=== PATIENT | male | born 1965 | race Caucasian/White ===

== ENCOUNTER 2018-01-03 11:51 | Emergency (ER) | payer OTHER ==
[~2018-01-03] VITALS: Ht 170.2 cm; Wt 134.9 kg
[~2018-01-03 11:51] MED LIST: ASPI81TA28 PO; CITA40TA12 PO; LPT/40 PO; LSN/10125 PO; MELO7.5T5 PO; MISCTAB78 PO; ZOLP5TAB PO
[2018-01-03 12:01] VITALS: TEMP 36.8; Ht 170.2 cm; Wt 134.9 kg
[2018-01-03] MEDS ORDERED: SODIUM CHLORIDE 0.9% 500ML 500 ML IV STA (12:23)
[2018-01-03] MEDS ORDERED: KETOROLAC TROMETHAMINE 30 MG/ML VIAL IV STA (12:23)
[2018-01-03] MEDS ORDERED: BENZONATATE 100MG CAP PO ONE (12:30)
[2018-01-03 12:49] LABS: BASO % 0.7 %; BASO ABS # 0.04 K/uL (0-0.2); EOS % 4.9 %; EOS ABS # 0.29 K/uL (0-0.5); HEMOGLOBIN 15.5 g/dL (14.0-18.0); IG# 0.01 K/uL (0.00-0.02); LYMPH % 27.6 %; LYMPH ABS # 1.65 K/uL (1.2-3.4); MEAN CELL VOLUME 85.8 fL (80-100); MEAN CORPUSCULAR HEMOGLOBIN 30.2 pg (25-34); MEAN CORPUSCULAR HGB CONC 35.2 g/dl (32-36); MEAN PLATELET VOLUME 10.2 fL (7.4-10.4); MONO % 10.7 %; MONO ABS # 0.64 K/uL (0.11-0.59); NEUT % 55.9 %; NEUT ABS # 3.34 K/uL (1.4-6.5); PLATELET COUNT 170 K/uL (130-400); RED CELL DISTRIBUTION WIDTH CV 13.6 % (11.5-14.5); RED CELL DISTRIBUTION WIDTH SD 42.6 fL (36.4-46.3); WHITE BLOOD COUNT 5.97 K/uL (4.8-10.8)
--- NOTE | 2018-01-03 12:54 | DIAGNOSTIC IMAGING REPORT ---
CHEST ONE VIEW PORTABLE HISTORY: 52 years-old Male cough acute cough COMPARISON: Portable AP view of the chest TECHNIQUE: Chest radiograph 09/19/2012 FINDINGS: The cardiac silhouette is mildly enlarged. There is no pneumothorax, pleural effusion, focal airspace consolidation or overt pulmonary edema. The bones of the chest appear grossly intact. Degenerative changes are seen within the shoulders and spine. IMPRESSION: Mild cardiomegaly without acute process. The above report was generated using voice recognition software. It may contain grammatical, syntax or spelling errors. Electronically signed by: Juan Howell M.D. 01/03/2018 12:52 PM Dictated Date/Time: 01/03/2018 12:50 PM
[2018-01-03 13:07] LABS: ALBUMIN 3.9 gm/dl (3.4-5.0); ALT/SGPT 39 U/L (12-78); AST/SGOT 30 U/L (15-37); BLOOD UREA NITROGEN 10 mg/dl (7-18); CALCIUM 8.7 mg/dl (8.5-10.1); CARBON DIOXIDE 29 mmol/L (21-32); CREATININE 0.98 mg/dl (0.60-1.40); GLUCOSE 87 mg/dl (70-99); POTASSIUM 3.8 mmol/L (3.5-5.1); SODIUM 136 mmol/L (136-145)
[2018-01-03 13:12] LABS: ALKALINE PHOSPHATASE 74 U/L (45-117); TOTAL PROTEIN 7.5 gm/dl (6.4-8.2)
[2018-01-03 13:25] LABS: INFLUENZA B ANTIGEN Neg for Influ B (NEG)
[2018-01-03] MEDS ORDERED: DOXY100C PO (15:11)
[2018-01-03] MEDS ORDERED: DOXYCYCLINE HYCLATE 100 MG CAP PO ONE (15:15)
[2018-01-03 15:27] VITALS: BP 131/80; PULSE 68; O2SAT 96
--- NOTE | 2018-01-03 18:55 | EMERGENCY ROOM VISIT NOTE ---
History Report prepared by Farrah: Paige Sanders Under the Supervision of: Dr. Merrick Simpson D.O. First contact with patient: 12:11 Chief Complaint: COUGH Stated Complaint: CHEST PAIN/COUGH History of Present Illness The patient is a 52 year old male who presents to the Emergency Room with complaints of an intermittent cough for the past 3 days. The patient has been experiencing a productive cough with off-white sputum. He reports central chest pain that occurs with coughing and is worsened with coughing. He describes his pain as "sharp" and "burning." He has some mild pain that lingers after coughing that he rates as a 1/10 in severity. The patient also reports rhinorrhea, sore throat, and right ear "popping." He notes that his children recently had strep throat. The patient saw his PCP today at the [place] [facility] about 45 minutes COLORIST for his symptoms. He had an abnormal ECG and was sent to the ED for further evaluation. He denies any significant cardiac history. Pt denies headache, change in vision, fevers, shortness of breath, nausea, vomiting, diarrhea, abdominal pain, pain with urination, and melena. Patient denies swelling of calves, recent trips, history of immobilization or recent surgery, prior history of DVT, hemoptysis, history of malignancy, or history of smoking. Source of History: patient Onset: 3 days ago Position: chest Symptom Intensity: 1/10 Quality: burning, sharp Timing: intermittent Modifying Factors (Worsening): other (coughing) Associated Symptoms: + sorethroat, + chest pain, No fevers, No headache, No SOB, No nausea, No vomiting, No abdominal pain, No melena, No diarrhea, No urinary symptoms Note: Pt notes rhinorrhea and right ear "popping." Review of Systems See HPI for pertinent positives & negatives. A total of 10 systems reviewed and were otherwise negative. Past Medical & Surgical Medical Problems: (1) Depressive disorder (2) Disc displacement, lumbar (3) Hypertension (4) Sleep apnea Family History No pertinent history stated. Social History Smoking Status: Never Smoker Housing Status: lives with family Current/Historical Medications Scheduled Aspirin (Aspirin Ec), 81 MG PO QAM Atorvastatin (Lipitor), 20 MG PO HS Citalopram Hydrobromide (Celexa), 40 MG PO QAM Doxycycline Hyclate (Vibramycin), 100 MG PO BID Hctz/Lisinopril (Lisinopril/Hctz 10/12.5 Mg), 1 TAB PO QAM Meloxicam (Mobic), 7.5 MG PO QAM Misc Natural Products (Osteo Bi-Flex Advanced Do), 2 TAB PO QAM Zolpidem Tartrate (Ambien), 5 MG PO HS Allergies Coded Allergies: Trazodone (Verified Allergy, Intermediate, RAPID HEART RATE, 01/03/18) Physical Exam Vital Signs Date Time Temp Pulse Resp B/P (MAP) Pulse Ox O2 Delivery O2 Flow Rate FiO2 01/03/18 15:27 68 15 131/80 96 Room Air 01/03/18 13:36 74 20 126/77 96 01/03/18 12:45 97 Room Air 01/03/18 12:10 67 01/03/18 12:01 36.8 66 16 162/88 97 Room Air Physical Exam GENERAL: Sitting up in bed, alert, dry cough, talking in full sentences, well appearing, well nourished, no distress, non-toxic EYE EXAM: normal conjunctiva. OROPHARYNX: no exudate, no erythema, lips, buccal mucosa, and tongue normal and mucous membranes are moist NECK: supple, no nuchal rigidity, no adenopathy, non-tender, no JVD LUNGS: Clear to auscultation. Normal chest wall mechanics HEART: no murmurs, S1 normal and S2 normal ABDOMEN: abdomen soft, non-tender, normo-active bowel sounds, no masses, no rebound or guarding. BACK: Back is symmetrical on inspection and there is no deformity, no midline tenderness, no CVA tenderness. SKIN: no rashes and no bruising UPPER EXTREMITIES: upper extremities are grossly normal. Radial pulses equal bilaterally. LOWER EXTREMITIES: No pitting edema, calves equal bilaterally. NEURO EXAM: Normal sensorium, cranial nerves II-XII grossly intact, normal speech, no gross weakness of arms, no gross weakness of legs. Medical Decision & Procedures ER Provider Diagnostic Interpretation: Radiology results as stated below per my review and the radiologist's interpretation: CHEST ONE VIEW PORTABLE HISTORY: 52 years-old Male cough acute cough COMPARISON: Portable AP view of the chest TECHNIQUE: Chest radiograph 09/19/2012 FINDINGS: The cardiac silhouette is mildly enlarged. There is no pneumothorax, pleural effusion, focal airspace consolidation or overt pulmonary edema. The bones of the chest appear grossly intact. Degenerative changes are seen within the shoulders and spine. IMPRESSION: Mild cardiomegaly without acute process. The above report was generated using voice recognition software. It may contain grammatical, syntax or spelling errors. Electronically signed by: Juan Howell M.D. 01/03/2018 12:52 PM Dictated Date/Time: 01/03/2018 12:50 PM Laboratory Results 01/03/18 12:37 Red Blood Count 5.13, Mean Corpuscular Volume 85.8, Mean Corpuscular Hemoglobin 30.2, Mean Corpuscular Hemoglobin Concent 35.2, Mean Platelet Volume 10.2, Neutrophils (%) (Auto) 55.9, Lymphocytes (%) (Auto) 27.6, Monocytes (%) (Auto) 10.7, Eosinophils (%) (Auto) 4.9, Basophils (%) (Auto) 0.7, Neutrophils # (Auto ) 3.34, Lymphocytes # (Auto) 1.65, Monocytes # (Auto) 0.64, Eosinophils # (Auto ) 0.29, Basophils # (Auto) 0.04 01/03/18 12:37 Test 01/03/18 12:37 01/03/18 12:45 White Blood Count 5.97 K/uL (4.8-10.8) Red Blood Count 5.13 M/uL (4.7-6.1) Hemoglobin 15.5 g/dL (14.0-18.0) Hematocrit 44.0 % (42-52) Mean Corpuscular Volume 85.8 fL (80-100) Mean Corpuscular Hemoglobin 30.2 pg (25-34) Mean Corpuscular Hemoglobin Concent 35.2 g/dl (32-36) Platelet Count 170 K/uL (130-400) Mean Platelet Volume 10.2 fL (7.4-10.4) Neutrophils (%) (Auto) 55.9 % Lymphocytes (%) (Auto) 27.6 % Monocytes (%) (Auto) 10.7 % Eosinophils (%) (Auto) 4.9 % Basophils (%) (Auto) 0.7 % Neutrophils # (Auto) 3.34 K/uL (1.4-6.5) Lymphocytes # (Auto) 1.65 K/uL (1.2-3.4) Monocytes # (Auto) 0.64 K/uL (0.11-0.59) Eosinophils # (Auto) 0.29 K/uL (0-0.5) Basophils # (Auto) 0.04 K/uL (0-0.2) RDW Standard Deviation 42.6 fL (36.4-46.3) RDW Coefficient of Variation 13.6 % (11.5-14.5) Immature Granulocyte % (Auto) 0.2 % Immature Granulocyte # (Auto) 0.01 K/uL (0.00-0.02) D-Dimer < 190 ug/L FEU (0-500) Anion Gap 6.0 mmol/L (3-11) Est Creatinine Clear Calc Drug Dose 119.4 ml/min Estimated GFR () 103.8 Estimated GFR (Non- 89.5 BUN/Creatinine Ratio 10.1 (10-20) Calcium Level 8.7 mg/dl (8.5-10.1) Total Bilirubin 0.5 mg/dl (0.2-1) Direct Bilirubin 0.1 mg/dl (0-0.2) Aspartate Amino Transf (AST/SGOT) 30 U/L (15-37) Alanine Aminotransferase (ALT/SGPT) 39 U/L (12-78) Alkaline Phosphatase 74 U/L (45-117) Troponin I < 0.015 ng/ml (0-0.045) Total Protein 7.5 gm/dl (6.4-8.2) Albumin 3.9 gm/dl (3.4-5.0) Influenza Type A Antigen Neg for Influ A (NEG) Influenza Type B Antigen Neg for Influ B (NEG) Laboratory results per my review. Medications Administered Medications (Trade) Dose Ordered Sig/Francisco Route Start Time Stop Time Status Last Admin Dose Admin Sodium Chloride 500 ml @ 999 mls/hr Q31M STAT IV 01/03/18 12:23 01/03/18 12:53 DC 01/03/18 12:48 999 MLS/HR Ketorolac Tromethamine (Toradol Inj) 30 mg NOW STAT IV 01/03/18 12:23 01/03/18 12:25 DC 01/03/18 12:45 30 MG Benzonatate (Tessalon Perles Cap) 100 mg NOW ONCE PO 01/03/18 12:30 01/03/18 12:31 DC 01/03/18 12:44 100 MG Doxycycline Hyclate (Vibramycin Cap) 100 mg ONE ONCE PO 01/03/18 15:15 01/03/18 15:16 DC 01/03/18 15:29 100 MG ECG Per My Interpretation Indication: chest pain Rate (beats per minute): 67 Rhythm: normal sinus Findings: left axis deviation, no ectopy ED Course ED COURSE: Vital signs were reviewed and showed hypertensive. The patients medical record was reviewed The above diagnostic studies were performed and reviewed. ED treatments and interventions as stated above. 1211: The patient was evaluated in room B5. A complete history and physical examination was performed. 1223: Toradol 30 mg IV, NSS 500 ml @ 999 mls/hr IV 1230: Benzonatate 100 mg PO 1424: I updated the patient and answered all of his questions at this time. 1513: Upon reevaluation, the patient is feeling better and resting comfortably. I discussed my findings with the patient and he understands and agrees with the treatment plan. Based on the patients age, coexisting illnesses, exam and lab findings the decision to treat as an outpatient was made. The patient remained stable while under my care. The patient appeared well at the time of discharge. 1515: Vibramycin 100 mg PO Medical Decision Differential diagnoses includes but is not limited to pneumonia, bronchitis, COPD/Asthma exacerbation, pneumothorax, pulmonary embolism, congestive heart failure, acute coronary syndrome. Patient is a 52-year-old male that presents to ER for persistent cough associated with chest pain. Chest pain started initially with the coughing. He also has a runny nose and sore throat. He has been having popping in his right ear. He feels as though his right ear is extremely congested. He is coughing up a clear mucousy productive cough. Chest pain is reproducible on palpation and is present with coughing. CBC along with BMP, LFTs, bilirubin and troponin was negative. D-dimer was negative. Influence was negative. EKG and chest x-ray were unremarkable. Based on symptoms I do believe that this is most consistent with a bronchitis. He was given doxycycline. He is discharged follow-up with PCP as an outpatient. His chest pain was completely reproducible over the left humerus. I do favor this musculoskeletal. Discussed with Pt concerning signs and symptoms to watch out for. Pt was instructed to follow up with their PCP and discussed with the patient their option to return to the ED at anytime for persistent or worsening symptoms. The appropriate anticipatory guidance and out-patient management, including indications for return to the emergency department, were explained at length to the patient and understood. Medication Reconcilliation Current Medication List: was personally reviewed by me Blood Pressure Screening Patient's blood pressure: Elevated blood pressure Blood pressure disposition: Elevated BP felt to be situational Impression Primary Impression: Bronchitis Scribe Attestation The scribe's documentation has been prepared under my direction and personally reviewed by me in its entirety. I confirm that the note above accurately reflects all work, treatment, procedures, and medical decision making performed by me. Departure Information Dispostion Home / Self-Care Prescriptions Doxycycline Hyclate (VIBRAMYCIN) 100 Mg Cap 100 MG PO BID for 10 Days, CAP Prov: Merrick Simpson, DO 01/03/18 Referrals Hailey Nino C.R.NTaylorPTaylor (PCP) Forms HOME CARE DOCUMENTATION FORM, IMPORTANT VISIT INFORMATION Patient Instructions Bronchitis Acute, My [facility] Additional Instructions Please follow up with your primary care doctor with in the next 24 hours. Any worsening of your symptoms, please return to the ED immediately. This includes any fevers greater than 100.4, worsening pain, chest pain, shortness breath, persistent nausea, vomiting, unable to eat or drink, or any other concerning signs or symptoms from your standpoint. Please take antibiotics as prescribed.
== END 2018-01-03 15:32 | disposition home or self-care (01) ==
LOC: EDBD 11:51 → C.EDB 11:56
DX: J40 Bronchitis, not specified as acute or chronic (principal); R94.31 Abnormal electrocardiogram [ECG] [EKG]; F32.9 Major depressive disorder, single episode, unspecified; M51.26 Other intervertebral disc displacement, lumbar region; Z88.8 Allergy status to other drugs, medicaments and biological substances

== ENCOUNTER 2020-07-07 11:10 | Inpatient (IN) ==
--- NOTE | 2020-06-06 14:53 | PAT Medication Instructions ---
Medication Instructions Date of Service June 06, 2020 Home Medications atorvastatin 40 mg PO QDL celecoxib [Celebrex] 200 mg PO QDL cyclobenzaprine 10 mg PO BID PRN gabapentin 300 mg PO TID lisinopril-hydrochlorothiazide 1 tab PO QDL paroxetine HCl 60 mg PO QDL zolpidem 10 mg PO HS PRN ASK your surgeon for instructions celecoxib [Celebrex] 200 mg PO QDL DO NOT take the morning of surgery cyclobenzaprine 10 mg PO BID PRN lisinopril-hydrochlorothiazide 1 tab PO QDL Take morning of surgery With a small sip of water, OTHERWISE NOTHING TO EAT OR DRINK AFTER MIDNIGHT: atorvastatin 40 mg PO QDL gabapentin 300 mg PO TID paroxetine HCl 60 mg PO QDL Take evening before surgery cyclobenzaprine 10 mg PO BID PRN (if needed) gabapentin 300 mg PO TID zolpidem 10 mg PO HS PRN (if needed) Other Notes If you have any questions please call us at [phone] or [phone] or [phone] or [phone]
--- NOTE | 2020-06-10 10:46 | Anesthesiology Consultation ---
Date of Service June 10, 2020 Assessment & Plan (1) Encounter for pre-operative examination: Chart Review Chart Review: Pending: Refer to Additional Notes / Consult section (response from PCP re: EKG and preop Covid testing ) and Patient seen in Pre Admission Testing Will send EKG to PCP for review to see if further cardiac testing or evaluation needed for septal infarct. Per PAT appt 06/10/20, no recent travel. No known Covid positive contacts or Covid related symptoms. Educated patient to follow up with surgeon's office regarding Covid testing. Educated on importance of self quarantining, social distancing and wearing mask in public both for the patient and household contacts. Teaching & Discussion Pre-Anesthesia Teaching/Discussion Notes: Instructed NPO after midnight before surgery,except medications with 15 cc of water. Medication instructions provided according to the PAT guidelines. History Surgery Operation Date: 07/07/20 10:35 Proposed Procedures p L3-S1 Decompression and Fusion, Spinal Cord Monitoring - Gonsalo Grossman DO Height/Weight Height: 5 ft 7 in Weight: 112.1 kg Allergies Allergy/AdvReac Type Severity Reaction Status Date / Time trazodone AdvReac Intermediate RAPID Verified 06/03/20 10:10 HEART RATE capsaicin AdvReac Insomnia Verified 06/03/20 10:10 Medications Home Medications Medication Instructions Recorded Confirmed Last Taken atorvastatin 40 mg PO QDL 06/03/20 06/03/20 Unknown celecoxib [Celebrex] 200 mg PO QDL 06/03/20 06/03/20 Unknown cyclobenzaprine 10 mg PO BID PRN 06/03/20 06/03/20 Unknown gabapentin 300 mg PO TID 06/03/20 06/03/20 Unknown lisinopril-hydrochlorothiazide 1 tab PO QDL 06/03/20 06/03/20 Unknown paroxetine HCl 60 mg PO QDL 06/03/20 06/03/20 Unknown zolpidem 10 mg PO HS PRN 06/03/20 06/03/20 Unknown Past Medical History Medical History Anxiety Depression Hearing deficit BL SUAZO Hyperlipidemia Hypertension IBS (irritable bowel syndrome) Mild - no recent flares PTSD (post-traumatic stress disorder) Sleep apnea CPAP Spinal stenosis Exercise / Class Metabolic Activity II 4-5 Yardwork/Stairs/Walk up hill (one flight of stairs - no chest pain or SOB ) Past Family History Family History Father Diabetes Other No family history of adverse response to anesthesia Past Surgical History Surgical History History of carpal tunnel release of both wrists History of colonoscopy History of eye surgery History of lumbar surgery Past Anesthesia History No Hx of Anesthesia Complications and No Family Hx of Anesthesia Complications History of PONV No Hx of PONV and No Hx of Motion Sickness Social History Smoking Status: Former smoker Do You Dip or Chew Tobacco: No Smoking End Date: 25 years ago Hx Alcohol Use: Yes alcohol intake frequency: holidays/special occasions only Hx Substance Use: No substance use type: does not use Review of Systems Patient denies chest pain, shortness of breath, dyspnea on exertion, reflux, cough, wheezing, palpitations. No hx of seizures, stroke, NV. No hx of blood clots or blood transfusions Physical Exam Vital Signs VITALS BP 121/81 P 71 TEMP 98.0 SP02 99% RESP 16 Constitutional no acute distress ENMT Mouth: no TMJ clicking Thyromental Distance: > or= 3.5 Finger Breadths (4.0) Mallampati Class: III Bridges top and bottom side of mouth Neck + short neck, + thick neck and + limited neck extension (moderate ) Respiratory normal respiratory effort; no respiratory distress Auscultation: lungs clear to auscultation bilaterally; no wheezes Cardiovascular Rate/Rhythm: regular rate and regular rhythm Heart Sounds: no murmur Vessels: no carotid bruit Musculoskeletal Spine: + pain with cervical ROM (secondary to pinched nerve in neck x one week (pain improving)) Neurologic moves all extremities Psychiatric Orientation: alert Testing Laboratory Results 06/10/20 11:05 06/10/20 11:05 PT 11.3 Seconds (9.0-12.0) 06/10/20 11:05 INR 1.1 (0.9-1.1) 06/10/20 11:05 APTT 29.1 Seconds (21.0-31.0) 06/10/20 11:05 Urine Color Yellow 06/10/20 Unknown Urine Appearance Clear (Clear) 06/10/20 Unknown Urine pH 5.0 (4.5-7.5) 06/10/20 Unknown Ur Specific [place] 1.017 (1.000-1.030) 06/10/20 Unknown Urine Protein Negative (Negative) 06/10/20 Unknown Urine Glucose (UA) Negative (Negative) 06/10/20 Unknown Urine Ketones Negative (Negative) 06/10/20 Unknown Urine Nitrite Negative (Negative) 06/10/20 Unknown Ur Leukocyte Esterase Negative (Negative) 06/10/20 Unknown Blood Type O Positive 06/10/20 11:05 Antibody Screen NEGATIVE 06/10/20 11:05 Electrocardiogram Date: 06/10/20 Findings: + NSR @ (72) Cannot rule out old septal infarct. Compared to EKG from January 03, 2018- criteria for septal infarct now present. Chest X-Ray Date: 06/10/20 Findings: + NAD
[2020-06-10 11:27] LABS: Basophils # (auto) 0.04 K/uL (0-0.2); Basophils % (auto) 0.6 %; Eosinophils # (auto) 0.09 K/uL (0-0.5); Eosinophils % (auto) 1.4 %; Immature Granulocytes # (auto) 0.02 K/uL (0.00-0.02); Immature Granulocytes % (auto) 0.3 %; Lymphocytes # (auto) 1.88 K/uL (1.2-3.4); Lymphocytes % (auto) 29.7 %; Mean Corpuscular Hemoglobin 29.9 pg (25-34); Mean Corpuscular Volume 87.9 fL (80-100); Mean Platelet Volume 11.6 fL (7.4-10.4); Monocytes # (auto) 0.44 K/uL (0.11-0.59); Neutrophils # (auto) 3.86 K/uL (1.4-6.5); Platelet Count 170 K/uL (130-400); RDW Coefficient of Variation 13.3 % (11.5-14.5); RDW Standard Deviation 42.6 fL (36.4-46.3); Red Blood Count 5.35 M/uL (4.7-6.1); White Blood Count 6.33 K/uL (4.8-10.8)
[2020-06-10 11:34] LABS: Appearance Urine Clear (Clear); Bilirubin Urine Negative (Negative); Blood Urine Negative (Negative); Color Urine Yellow; Glucose Urine UA Negative (Negative); Ketones Urine Negative (Negative); Leukocyte Esterase Urine Negative (Negative); Nitrite Urine Negative (Negative); Protein Urine Negative (Negative); Specific Gravity Urine 1.017 (1.000-1.030); Urobilinogen Urine Negative (Negative)
--- NOTE | 2020-06-10 11:39 | XRay Report ---
XR chest Pre-admission PA/Lat CLINICAL HISTORY: Preoperative chest COMPARISON STUDY: 01/03/2018 FINDINGS: The cardiac and mediastinal contours are normal. There is no evidence of focal pulmonary co nsolidation. There is no evidence of failure. No pleural effusions are visualized.[Minor erosive gamboa ge/tapering of the distal clavicles cannot be excluded although they're not well-visualized the curre nt study IMPRESSION: No active disease in the chest. ACT 112: Negative or not required by law. Electronically signed by: Francisco Lopez M.D. 06/10/2020 11:38 AM
[2020-06-10 11:57] LABS: INR 1.1 (0.9-1.1); Partial Thromboplastin Time 29.1 Seconds (21.0-31.0); Prothrombin Time 11.3 Seconds (9.0-12.0)
[2020-06-10 12:16] LABS: BUN Creatinine Ratio 15.7 (10-20); Calcium 8.8 mg/dl (8.5-10.1); Est GFR (Non-African American) 75.9; Potassium 4.2 mmol/L (3.5-5.1)
--- NOTE | 2020-06-10 12:19 | Electrocardiogram Report ---
Test Reason : Blood Pressure : / mmHG Vent. Rate : 072 BPM Atrial Rate : 072 BPM P-R Int : 164 ms QRS Dur : 094 ms QT Int : 396 ms P-R-T Axes : 061 -24 004 degrees QTc Int : 433 ms Normal sinus rhythm Cannot rule out Old Septal infarct Abnormal ECG When compared with ECG of 03-JAN-2018 11:57, Criteria for Septal infarct is now Present Confirmed by Telly Denney ([id number]) on 06/10/2020 12:19:20 PM Referred By: Gonsalo Grossman Confirmed By:Telly Denney
[~2020-07-07 11:10] MED LIST changes: +ACETAMINOPHEN 500 MG TAB PO SCH; -ASPI81TA28 PO; +CEFAZOLIN 2000MG 2,000 MG/15 ML SYR IV SCH; -CITA40TA12 PO; +CeleBREX 200 MG CAP PO SCH; +GABAPENTIN 900 MG DOSE PO SCH; +LACTATED RINGER'S 1,000 ML IV SCH; -LPT/40 PO; -LSN/10125 PO; -MELO7.5T5 PO; -MISCTAB78 PO; -ZOLP5TAB PO
--- NOTE | 2020-07-07 11:52 | History & Physical Bridge Note ---
Date of Service July 07, 2020 History & Physical Bridge Note I have examined the patient, reviewed the History & Physical and in the interval since the performance of the History & Physical I have noted the following changes of clinical significance: no changes noted
[2020-07-07] MEDS ORDERED: BACITRACIN INJ 50,000 UNIT VIAL ONE (11:53)
--- NOTE | 2020-07-07 11:53 | History & Physical Report ---
Date of Service July 07, 2020 Assessment & Plan (1) Neurogenic claudication due to lumbar spinal stenosis: Admission and Anticipated Discharge Date Admission Date: L3-S1 decompression fusion History of Present Illness Chief Complaint: Back and leg pain Primary Care Provider: Ansley Padgett PA-C This is a 55-year-old male who presents with chronic persistent back pain and leg pain after failing course of nonoperative care is here for surgical invention. Allergies Allergy/AdvReac Type Severity Reaction Status Date / Time trazodone AdvReac Intermediate RAPID Verified 07/07/20 11:44 HEART RATE capsaicin AdvReac Insomnia Verified 07/07/20 11:44 Home Medications Home Medications Medication Instructions Recorded Confirmed Type atorvastatin 40 mg PO QDL 06/03/20 07/07/20 History celecoxib [Celebrex] 200 mg PO QDL 06/03/20 07/07/20 History cyclobenzaprine 10 mg PO BID PRN 06/03/20 07/07/20 History gabapentin 300 mg PO TID 06/03/20 07/07/20 History lisinopril-hydrochlorothiazide 1 tab PO QDL 06/03/20 07/07/20 History paroxetine HCl 60 mg PO QDL 06/03/20 07/07/20 History zolpidem 10 mg PO HS PRN 06/03/20 07/07/20 History Past Med/Surg History Medical History Anxiety Depression Hearing deficit BL SUAZO Hyperlipidemia Hypertension IBS (irritable bowel syndrome) Mild - no recent flares PTSD (post-traumatic stress disorder) Sleep apnea CPAP Spinal stenosis Surgical History History of carpal tunnel release of both wrists History of colonoscopy History of eye surgery History of lumbar surgery Family History Father Diabetes Other No family history of adverse response to anesthesia Social History Smoking Status: Former smoker Smoking End Date: 25 years ago; Second Hand Exposure: No; Do You Dip or Chew Tobacco: No; Tobacco Cessation Education Requested by Patient: No Hx Alcohol Use: Yes Hx Substance Use: No Preferred Language: Brazilian Communication Ability: Effective Cafeteria Monitor Required: No Beliefs That Will Affect Care: Worship Worship Beliefs: Congregational Current Living Situation: Spouse Feels Safe at Home: Yes Safety Concerns: Feels Safe At This Time Assistive Devices: CPAP, Glasses and Hearing Aid - Bilateral Physical Exam Physical Exam: Patient is alert and oriented neurologically intact. Heart regular in rhythm. Lungs clear to auscultation.
[2020-07-07] MEDS ORDERED: BUPIVACAINE/EPINEPHRINE 0.25% 1:200,000 30 ML VIAL ONE (11:54)
[2020-07-07] MEDS ORDERED: MIDAZOLAM HCL 1 MG/ML 2ML VIAL ONE (11:59)
[2020-07-07] MEDS ORDERED: fentaNYL citrate 100 MCG/2 ML VIAL ONE ×3 (11:59→15:19)
[2020-07-07] MEDS ORDERED: PROPOFOL IV EMULSION 10 MG/ML 20 ML VIAL IV ONE (12:00)
[2020-07-07] MEDS ORDERED: ROCURONIUM BROMIDE 10 MG/ML 5 ML VIAL IV ONE ×10 (12:00→14:27)
[2020-07-07] MEDS ORDERED: LIDOCAINE HCL 2% 2 ML VIAL/AMP(20MG/ML) INFIL ONE (12:00)
[2020-07-07] MEDS ORDERED: DEXAMETHASONE SOD INJ 4 MG/ML VIAL ONE (12:01)
[2020-07-07] MEDS ORDERED: ONDANSETRON INJ 2 MG/ML 2 ML VIAL ONE (12:01)
[2020-07-07] MEDS ORDERED: FLOSEAL HEMOSTATIC MATRIX 10ML TOP ONE (12:54)
[2020-07-07] MEDS ORDERED: ePHEDrine sulfate 50 MG/ML SYR ONE (13:01)
[2020-07-07] MEDS ORDERED: PHENYLEPHRINE 100MCG/ML 5ML SYR ONE (13:05)
[2020-07-07] MEDS ORDERED: HYDROmorphone INJ 2 MG/ML SYR/VIAL IV PRN (13:15)
[2020-07-07] MEDS ORDERED: fentaNYL citrate 100 MCG/2 ML VIAL IV PRN (13:15)
[2020-07-07] MEDS ORDERED: ATROPINE SULFATE 0.1 MG/ML 10ML SYR IV PRN (13:15)
[2020-07-07] MEDS ORDERED: ONDANSETRON INJ 2 MG/ML 2 ML VIAL IV PRN ×2 (13:15→16:50)
[2020-07-07] MEDS ORDERED: ePHEDrine sulfate 50 MG/ML AMP IV PRN (13:15)
[2020-07-07] MEDS ORDERED: GLYCOPYRROLATE 0.2 MG/ML VIAL ONE (14:02)
[2020-07-07] MEDS ORDERED: NEOSTIGMINE METHYLSULFATE 1 MG/ML 10ML VIAL ONE (14:02)
--- NOTE | 2020-07-07 15:16 | Operative Report ---
Post Operative Report Pre & Post Diagnosis Operation Date: 07/07/20 12:55 Pre-Op Diagnosis: Lumbar spinal stenosis with neurogenic claudication Obesity Post-Op Diagnosis: Same I identified the patient and participated in the time-out.: Yes Procedure Operation Date: 07/07/20 12:55 Actual Procedures #1 revision decompression with bilateral medial facetectomies and foraminotomies L2-3, L3-4, L4-5 and L5-S1. #2 posterior spinal fusion L3-4, L4-5 and L5-S1. #3 placement posterior segmental instrumentation L3-S1. #4 interbody fusion L3- 4, L4-5 and L5-S1. #5 placed a peek cage 11 x 26 mm at L3-4 and 13 x 26 mm at L4-5 and L5-S1. #6 placement locally harvested morselized autograft in the posterior lateral gutters. #7 placement infuse collagen sponge, master graft and posterior gutters and ostial amp interbody space. Surgeon Gonsalo Grossman, DO Research And Development Specialist Claire Chapman Estimated Blood Loss 900 Findings See Below Patient is 5 foot 7 inches tall weighing over 112 kg with a BMI in excess of 38. This combined with an EBL in excess of 900 cc created significant technical difficulty. He required her deepest retractors and longest instruments in order to perform his procedure. This at least 50% increase to the operative time. Specimens None Indications This is a 55-year-old male who presents with above-mentioned diagnosis after failing stents course of nonoperative care is here for the above-mentioned procedure. Description of Procedure Patient was met with identified informed consent obtained. Patient was then taken to the operative suite underwent an patient placed in a prone position the Russell table on top Mikie frame. All bony prominences well-padded eyes inspected to ensure no external pressure placed upon them. This point the lumbar spine was prepped and draped in normal sterile fashion. Sharp dissection with the assistance of Bovie cautery was performed down to and exposing the remaining lamina and transverse processes of L3-L4-L5 and the sacral ala bilaterally. From a caudal cephalad fashion revision complete laminectomy of L5 L4 L3 and proximal laminectomy L2 was performed including bilateral medial facetectomies and foraminotomies addressing severe spinal stenosis. Pedicle screws were then placed in L3-L4-L5 and S1 levels bilaterally with assistance of fluoroscopy and proper sized estuardo placed. By way of a trans-foraminal approach on the right complete discectomy of L5-S1 was performed endplates curetted to subcortical bleeding bone and a 13 x 26 mm peek cage filled with osteo-bone graft tapped in position. Then proceeded L4-[address] of a trans- foramen approach on the left complete discectomy performed endplates coated to subcortically bone and a 13 x 26 mm peek cage filled osteo-bone graft tapped in position. Lastly I proceeded to L3-[address] to transfer approach on right complete discectomy performed endplates curetted to subcortical bleeding bone and a 11 x 26 mm peek cage with osteo-bone graft tapped in position. The rods were then locked in final position bilaterally. The transverse processes of L3-L4-L5 and the sacral ala burred to subcortical bleeding bone. Infuse collagen sponge master graft local autograft was placed in posterior gutters. 15 round ERNESTO drain inserted. Incision was then closed with 1 Vicryl the fascia 2-0 Vicryl subcutaneously and 4 Monocryl for final skin closure. Steri-Strip sterile dressings placed. Patient waken taken PACU stable condition. Please note spinal cord monitoring was utilized at the procedure no changes noted. Lastly Claire Chapman was present at the entire procedure involved the patient positioning complex portions of the surgery and final skin closure. I attest to the content of the Intraoperative Record and any orders documented therein. Any exceptions are noted below.
--- NOTE | 2020-07-07 15:22 | Fluoroscopy Report ---
FL lumbar spine 2-3V CLINICAL HISTORY: L3-S1 DECOMPRESSION AND FUSION COMPARISON STUDY: 2011 FLUOROSCOPY TIME: 29 seconds. NUMBER OF FLUOROSCOPIC IMAGES: 3 FINDINGS: 2 intraoperative fluoroscopic spot images reveal postsurgical changes of an L3-S1 spinal de compression and fusion with posterior pedicle screws and adjoining spinal rods IMPRESSION: Intraoperative fluoroscopic spot images revealing postsurgical changes of an L3-S1 spina l decompression and fusion. ACT 112: Negative or not required by law. Electronically signed by: Francisco Lopez M.D. 07/07/2020 3:21 PM
--- NOTE | 2020-07-07 16:48 | Anesthesiology Progress Note ---
Date of Service July 07, 2020 Anesthesia Post Procedure Vital Signs Vital Signs: Temp Pulse Pulse Resp BP BP Pulse Ox 07/07/20 16:35 83 14 118/66 97 07/07/20 16:25 36.4 C L 80 12 111/70 96 07/07/20 16:15 83 16 122/71 96 07/07/20 16:05 82 20 137/67 97 07/07/20 15:55 73 19 133/72 96 07/07/20 15:45 36.2 C L 85 11 L 130/78 99 07/07/20 11:59 37.7 C H 64 18 159/90 H 97 Pain Intensity Lower Medial Back: Pain Intensity: 0 Transfer of Care Handoff Completed per policy Notes Mental Status: alert / awake / arousable and participated in evaluation Patient Amnestic to Procedure: Yes Nausea / Vomiting: adequately controlled Pain: adequately controlled Airway Patency, RR, SpO2: stable & adequate BP & HR: stable & adequate Hydration State: stable & adequate Anesthetic Complications: no major complications apparent and Pt Satisfied with anesthetic care
[2020-07-07] MEDS ORDERED: TRAMADOL HCL 50 MG TABLET PO PRN (16:50)
[2020-07-07] MEDS ORDERED: ACETAMINOPHEN 1,000 MG/100 ML VIAL IV PRN (16:50)
[2020-07-07] MEDS ORDERED: NALOXONE HCL 0.4 MG/1 ML VIAL/CARP IV PRN (16:50)
[2020-07-07] MEDS ORDERED: DO NOT ADMINISTER FLU VACCINE PRN (16:50)
[2020-07-07] MEDS ORDERED: ALUMINUM/MAGNESIUM SUSP 30 ML UDC PO PRN (16:50)
[2020-07-07] MEDS ORDERED: SOD PHOSPHATE/SOD BIPHOSPHATE ENEMA 132 ML BTL PR PRN (16:50)
[2020-07-07] MEDS ORDERED: PROMETHAZINE HCL 12.5 MG in SODIUM CHLORIDE 0.9% 50 ML IV PRN (16:50)
[2020-07-07] MEDS ORDERED: FAMOTIDINE 20 MG TAB PO PRN (16:50)
[2020-07-07] MEDS ORDERED: MAGNESIUM HYDROXIDE SUSP 30 ML UDC PO PRN (16:50)
[2020-07-07] MEDS ORDERED: ONDANSETRON 4 MG OD TAB PO PRN (16:50)
[2020-07-07] MEDS ORDERED: DO NOT ADMINISTER PNEUMOCOCCAL VACCINE PRN (16:50)
[2020-07-07] MEDS ORDERED: METOCLOPRAMIDE HCL INJ 5 MG/ML 2 ML VIAL IV PRN (16:50)
[2020-07-07] MEDS ORDERED: HYDROmorphone INJ 1 MG/ML SYRINGE IV PRN (16:50)
[2020-07-07] MEDS ORDERED: bisacodyL 10 MG SUPP PR PRN (16:50)
[2020-07-07] MEDS ORDERED: LORazepam 0.5 MG/1 ML VIAL IV PRN (16:50)
[2020-07-07] MEDS ORDERED: LORazepam 0.5 MG TAB PO PRN (16:50)
[2020-07-07] MEDS ORDERED: HYDROmorphone INJ 0.5 MG/0.5 ML SYR IV PRN (16:50)
[2020-07-07] MEDS: LACTATED RINGER'S 1,000 ML IV SCH ×2 (16:55→23:26)
--- NOTE | 2020-07-07 17:21 | Consultation ---
Date of Consultation July 07, 2020 Assessment & Plan (1) Neurogenic claudication due to lumbar spinal stenosis: Status post L3-S1 lumbar decompression fusion by Dr. Grossman POD #0 EBL 900 mL; ANGELIQUE drain to 240 mL Tolerated procedure well, postoperative drowsiness Pain/wound management per Ortho Activity and therapy as directed by Ortho Encourage incentive spirometry Monitor H&H given blood loss (2) Hypertension: Blood pressure on lower side postoperatively 98/65, heart rate 78 Hold lisinopril/HCTZ until reevaluated in a.m. Resume as able (3) Depressive disorder: Continue Paxil mood stable (4) Hyperlipidemia: continue statin (5) Sleep apnea: CPAP @ HS Disposition: per primary Follow up: PCP @ [facility] [place] upon discharge Pt was seen and examined in collaboration with Dr. Matthew, please see addendum Starting 07/08/2020 pt will be under the care of Dr. Santos Thank you for this consultation. We will follow the patient with you during their hospital stay. You can reach a member of the [facility] 09/05 via pager @ [phone]. Supervising Physician Co-Signing Physician Notes I saw this patient with the physician glass ribbon machine operator assistant, I participated in the history, physical, review of systems, and physical exam. I reviewed the medications with the patient and the physician glass ribbon machine operator assistant and helped reconcile the medications. I helped take a detailed family and social history as well. I formulated the assessment and plan personally with the physician glass ribbon machine operator assistant and went over it with the patient. Physical Exam Gen-AAO x 3, NAD, Afebrile, +drain in place Head-NCAT, EOMI, PERRLA, Anicteric Sclera, No Posterior Pharyngeal Erythema Neck-Supple, No JVD, No Thyromegaly, No Masses, No LAD, No Bruits Lungs-Clear to Auscultation Bilaterally, No Rales, No Rhonchi, No Wheezing, No Crepitus Chest-No S4, +S1, +S2, No S3, No Murmurs, No Rubs, No Gallops, No Ectopy Abdomen-Soft, Bowel Sounds Present, Non Tender, Non Distended, No Hepatomegaly, No Splenomegaly, No Palpable Masses, No Rebound, No Rigidity, No Guarding Musculoskeletal-Full Range of Motion Bilaterally, No CVAT Extremities-No Cyanosis, No Clubbing, No Edema Nuero-Cranial Nerves II-XII grossly intact, Motor WNL, DTRs WNL, Strength WNL, Non Focal Psych-Normal Mood History of Present Illness Requesting Physician: Dr. Grossman Reason for Consultation: Postop medical management Attending Physician: Gonsalo Grossman, History of Present Illness This is a 55-year-old male who has significant past medical history of HTN, HLD, FLORI on CPAP, IBS, depression with anxiety, PTSD, lumbar spinal stenosis who underwent elective lumbar procedure today. This is patient's second back surgery. Patient has been experiencing chronic low back pain with radicular symptoms right greater than left. He underwent L3-S1 decompression fusion today by Dr. Grossman. Patient is very drowsy postoperatively and his is at bedside. Currently complains of being, "hot." He denies any fever, chills, sweats, lightheadedness, dizziness, chest pain, shortness breath, nausea vomiting, abdominal pain. He states he did not bring his CPAP with him. He does have history of hypertension well-controlled on lisinopril hydrochlorothiazide. His cholesterol is controlled on atorvastatin. [facility] [place]. His depression is controlled with Paroxetine. Allergies Allergy/AdvReac Type Severity Reaction Status Date / Time trazodone AdvReac Intermediate RAPID Verified 07/07/20 11:44 HEART RATE capsaicin AdvReac Insomnia Verified 07/07/20 11:44 Home Medications Home Medications Medication Instructions Recorded Confirmed Type atorvastatin 40 mg PO QDL 06/03/20 07/07/20 History celecoxib [Celebrex] 200 mg PO QDL 06/03/20 07/07/20 History cyclobenzaprine 10 mg PO BID PRN 06/03/20 07/07/20 History gabapentin 300 mg PO TID 06/03/20 07/07/20 History lisinopril-hydrochlorothiazide 1 tab PO QDL 06/03/20 07/07/20 History paroxetine HCl 60 mg PO QDL 06/03/20 07/07/20 History zolpidem 10 mg PO HS PRN 06/03/20 07/07/20 History Patient History Medical History (Updated 07/07/20 @ 17:20 by Lauren Johnston PA-C) Anxiety Depression Hearing deficit BL SUAZO Hyperlipidemia Hypertension IBS (irritable bowel syndrome) Mild - no recent flares PTSD (post-traumatic stress disorder) Sleep apnea CPAP Spinal stenosis Surgical History History of carpal tunnel release of both wrists History of colonoscopy History of eye surgery History of lumbar surgery Family History Father Diabetes Other No family history of adverse response to anesthesia Social History Smoking Status: Former smoker Smoking End Date: 25 years ago; Second Hand Exposure: No; Do You Dip or Chew Tobacco: No; Tobacco Cessation Education Requested by Patient: No Hx Alcohol Use: Yes Hx Substance Use: No Preferred Language: Occitan Communication Ability: Effective [employer] Required: No Beliefs That Will Affect Care: Buddhism Buddhism Beliefs: Yarsanism Current Living Situation: Spouse Feels Safe at Home: Yes Safety Concerns: Feels Safe At This Time Assistive Devices: CPAP, Glasses and Hearing Aid - Bilateral Review of Systems Review of Systems: All systems reviewed & are unremarkable except as noted in HPI & below Physical Exam Physical Exam: Constitutional: WD/WN, vitals as above, NAD, lying in bed, drowsy, arouses to verbal stimuli, answers questions approp Head: Normocephalic, Atraumatic Eyes: PERRL, conjunctivae normal, anicteric sclerae ENMT: external ear and nose normal, oropharynx normal Neck: trachea midline, no thyromegaly normal visual inspection Respiratory: normal respiratory effort, lungs clear to auscultation, no wheeze, rales, rhonchi. Normal insp/exp effort, no accessory muscle use Cardiovascular: Refer to Dr. Matthew for Cardiovascular and Lung exam. B/L SCD/TEDS, no edema Vessels: no JVD or carotid bruit Chest: normal inspection of chest Abdomen: normal bowel sounds, soft, nontender, no hepatosplenomegaly Musculoskeletal: no cyanosis or clubbing, range of motion to extremities x4 Skin: no rashes, warm and dry normal turgor , lumbar dressing CDI, angelique drain serosanguineous drainage Neurologic: PERRL, EOMI, accommodation nl, no face palsy, no dysarthria CN's II-XI intact bilaterally and moves all extremities Psychiatric: A+Ox3, drowsy, euthymic affect Lymphatic: no cervical or axillary lymphadenopathy : deferred Results & Data ([facility]) Vital Signs (Past 12 Hours) Vital Signs Temp Pulse Pulse Resp BP BP Pulse Ox 07/07/20 16:35 83 14 118/66 97 07/07/20 16:25 36.4 C L 80 12 111/70 96 07/07/20 16:15 83 16 122/71 96 07/07/20 16:05 82 20 137/67 97 07/07/20 15:55 73 19 133/72 96 07/07/20 15:45 36.2 C L 85 11 L 130/78 99 07/07/20 11:59 37.7 C H 64 18 159/90 H 97 Laboratory Results Pre op lab results 06/10/2020 CBC: WBC 6.33k, H&H 16.0.7.0, platelet 170 BMP: Sodium 138, K4.2, BUN 17, creatinine 1.11 Diagnostic Findings Lumbar Xray: IMPRESSION: Intraoperative fluoroscopic spot images revealing postsurgical changes of an L3-S1 spinal decompression and fusion. CXR: IMPRESSION: No active disease in the chest. Preoperative Exercise stress test was negative for ischemia Medications Administered Acetaminophen (Acetaminophen 500 Mg Tab) 1,000 mg PO PREOP JANET Stop: 07/07/20 18:00 Last Admin: 07/07/20 11:25 Dose: 1,000 mg Documented by: [id number] Celecoxib (Celebrex 200 Mg Cap) 200 mg PO PREOP JANET Stop: 07/07/20 18:00 Last Admin: 07/07/20 11:52 Dose: 200 mg Documented by: [id number] Gabapentin (Gabapentin 900 Mg Dose) 900 mg PO PREOP JANET Stop: 07/07/20 18:00 Last Admin: 07/07/20 11:51 Dose: 600 mg Documented by: [id number] Lactated Ringer's (Lr) 1,000 mls @ 15 mls/hr IV PREOP JANET Stop: 07/08/20 05:59 Last Infusion: 07/07/20 12:20 Dose: 0 mls/hr Documented by: [id number] Admin: 07/07/20 11:52 Dose: 15 mls/hr Documented by: [id number] Cefazolin Sodium (Ancef 2000mg) 2,000 mg in 15 mls @ 3.75 mls/min IV PREOP JANET Stop: 07/07/20 18:00 Last Admin: 07/07/20 12:17 Dose: 3.75 mls/min Documented by: [id number] Lactated Ringer's (Lr) 1,000 mls @ 150 mls/hr IV .Q6H40M JANET Stop: 08/06/20 16:49 Last Admin: 07/07/20 16:55 Dose: 150 mls/hr Documented by: [id number] Discontinued Medications Bacitracin (Bacitracin Inj 50,000 Unit Vial) Confirm Administered Dose 50,000 units .ROUTE .STK-MED ONE Stop: 07/07/20 11:54 Last Admin: 07/07/20 13:02 Dose: 50,000 units Documented by: [id number] Bupivacaine HCl/Epinephrine Bitart (Bupivacaine/Epinephrine 0.25% 1:200,000 30 Ml Vial) Confirm Administered Dose 30 ml .ROUTE .STK-MED ONE Stop: 07/07/20 11:55 Last Admin: 07/07/20 13:02 Dose: 30 ml Documented by: [id number] Miscellaneous ( Floseal Hemostatic Matrix 10ml) 20 ml TOP ONCE ONE Stop: 07/07/20 12:55 Last Admin: 07/07/20 15:31 Dose: 19 ml Documented by: [id number] ECG Rate (beats per minute): 72 Rhythm: normal sinus Additional Comments: criteria for septal infarct present
[2020-07-07] MEDS: KETOROLAC 30 MG/ML VIAL IV SCH ×2 (18:27→23:26)
[2020-07-07 18:57] LABS: Basophils # (auto) 0.01 K/uL (0-0.2); Basophils % (auto) 0.1 %; Hematocrit (blood only) 41.7 % (42-52); Hemoglobin 13.9 g/dL (14.0-18.0); Immature Granulocytes # (auto) 0.07 K/uL (0.00-0.02); Immature Granulocytes % (auto) 0.4 %; Lymphocytes # (auto) 0.74 K/uL (1.2-3.4); Lymphocytes % (auto) 4.1 %; Mean Corpuscular Hemoglobin 29.4 pg (25-34); Mean Corpuscular Volume 88.3 fL (80-100); Mean Platelet Volume 11.6 fL (7.4-10.4); Monocytes # (auto) 0.43 K/uL (0.11-0.59); Monocytes % (auto) 2.4 %; Neutrophils # (auto) 16.64 K/uL (1.4-6.5); Platelet Count 184 K/uL (130-400); RDW Coefficient of Variation 13.4 % (11.5-14.5); RDW Standard Deviation 43.6 fL (36.4-46.3); Red Blood Count 4.72 M/uL (4.7-6.1); White Blood Count 17.89 K/uL (4.8-10.8)
[2020-07-07 19:09] LABS: Mean Corpuscular Hgb Conc 33.3 g/dL (32-36)
[2020-07-07] MEDS: CEFAZOLIN 2000MG 2,000 MG/15 ML SYR IV SCH (20:14)
[2020-07-07] MEDS: GABAPENTIN 300 MG CAP PO SCH (20:15)
[2020-07-07] MEDS: DOCUSATE SODIUM/SENNA 50/8.6MG TAB PO SCH (20:16)
[2020-07-07] MEDS: OXYCODONE HCL IR 5 MG TAB (IMMEDIATE RELEASE) PO PRN (21:33)
[2020-07-08] MEDS: CEFAZOLIN 2000MG 2,000 MG/15 ML SYR IV SCH (03:56)
[2020-07-08] MEDS: KETOROLAC 30 MG/ML VIAL IV SCH ×2 (05:39→12:04)
[2020-07-08] MEDS: POLYETHYLENE (MIRALAX) 17 GM PACK PO SCH ×4 (05:39→23:24)
[2020-07-08] MEDS: LACTATED RINGER'S 1,000 ML IV SCH (06:14)
[2020-07-08 06:58] LABS: Hematocrit (blood only) 39.4 % (42-52); Hemoglobin 13.1 g/dL (14.0-18.0); Immature Granulocytes # (auto) 0.05 K/uL (0.00-0.02); Immature Granulocytes % (auto) 0.3 %; Lymphocytes # (auto) 1.42 K/uL (1.2-3.4); Lymphocytes % (auto) 9.7 %; Mean Corpuscular Hemoglobin 29.4 pg (25-34); Mean Corpuscular Hgb Conc 33.2 g/dL (32-36); Mean Corpuscular Volume 88.5 fL (80-100); Mean Platelet Volume 11.7 fL (7.4-10.4); Monocytes # (auto) 1.13 K/uL (0.11-0.59); Monocytes % (auto) 7.7 %; Neutrophils # (auto) 12.09 K/uL (1.4-6.5); Neutrophils % (auto) 82.3 %; Platelet Count 198 K/uL (130-400); RDW Coefficient of Variation 13.6 % (11.5-14.5); RDW Standard Deviation 43.9 fL (36.4-46.3); Red Blood Count 4.45 M/uL (4.7-6.1); White Blood Count 14.69 K/uL (4.8-10.8)
[2020-07-08 07:26] LABS: Creatinine Clr Calc Pharmacy 85.1 ml/min; Est GFR (African American) 79.5; Est GFR (Non-African American) 68.6; Potassium 4.5 mmol/L (3.5-5.1)
[2020-07-08] MEDS: GABAPENTIN 300 MG CAP PO SCH ×3 (08:27→20:15)
--- NOTE | 2020-07-08 08:32 | Orthopedic Progress Note ---
Date of Service July 08, 2020 Assessment & Plan (1) Neurogenic claudication due to lumbar spinal stenosis: Admission and Anticipated Discharge Date Admission Date: July 07, 2020 At this time initiate physical therapy monitor ERNESTO operatively discharge home in next few days. Subjective Back pain controlled leg symptoms improved Physical Exam Physical Exam: Patient appears comfortable is good strength testing. Results & Data ([facility]) Vital Signs (Past 12 Hours) Vital Signs Temp Pulse Resp BP Pulse Ox 07/08/20 07:19 37.2 C 71 16 127/76 95 07/08/20 06:01 95 07/08/20 03:55 37.3 C 69 16 128/78 99 07/07/20 23:38 36.7 C 66 14 113/71 99 07/07/20 21:33 65 100
--- NOTE | 2020-07-08 09:21 | Hospitalist Progress Note ---
Date of Service July 08, 2020 Assessment & Plan (1) Neurogenic claudication due to lumbar spinal stenosis: Status post L3-S1 lumbar decompression fusion by Dr. Grossman POD #1 EBL 900 mL; ERNESTO drain to 715 mL Tolerated procedure well, postoperative drowsiness Pain/wound management per Ortho Activity and therapy as directed by Ortho Encourage incentive spirometry remove khalil cath post PT today (2) Acute blood loss anemia: Preop hemoglobin 16.1 Today H&H 13.1 and 39.4 Patient with a EBL of 900 mL and current ERNESTO drain at 715 mL Continue to monitor H&H, vitals stable (3) Leucocytosis: wbc 14.69k, likely in setting of post op state no s/sx of infection, monitor does not appear pt received pre op decadron; however dose has been ordered for today (4) Elevated fasting glucose: BSG 128 likely in setting of post op state pre op lab glucose 97 repeat with a.m. labs (5) Hypertension: Blood pressure was on lower side postoperatively yesterday, 127/76 today Continue to hold lisinopril/HCTZ Continue to reevaluate pressures and resume as able (6) Depressive disorder: Continue Paxil mood stable (7) Hyperlipidemia: continue statin (8) Sleep apnea: CPAP @ HS Disposition: per primary Follow up: PCP @ [facility] [place] upon discharge Pt was seen and examined in collaboration with Dr. Shanks, please see addendum Thank you for this consultation. We will follow the patient with you during their hospital stay. You can reach a member of the [facility] Hospitalist Team 09/05 via pager @ [phone]. Admission and Anticipated Discharge Date Admission Date: July 07, 2020 Supervising Physician Co-Signing Physician Notes Patient is seen and examined at bedside. Reports transient dizziness after having pain medication use this morning. Back pain is fairly controlled. + Flatus, no bowel movement. Denies chest pain, shortness of breath, nausea, abdominal pain. Sitting in chair comfortably this morning. On exam patient is moderately built and nourished, no apparent distress, normocephalic atraumatic, lungs are clear to auscultation, S1-S2, no murmur, abdomen soft, nontender, normal bowel sounds, Back--surgical site in dressing,+ drain, alert, awake, oriented, grossly no focal neurological deficits, no pedal edema. Patient is consulted for postop medical management. S/P lumbar decompression fusion surgery by Dr. Grossman for neurogenic claudication due to lumbar spinal stenosis. Postop, acute blood loss anemia noted. No indication for blood transfusion currently. Monitor CBC. Pain control, activity, DVT prophylaxis, wound care as per primary team. Continue bowel regimen to prevent constipation. Blood pressure slightly elevated today afternoon. Will resume lisinopril. Continue to hold HCTZ for now. Persistent leukocytosis--Likely reactive secondary to surgery. I personally reviewed the record. Patient is interviewed and examined at bedside. Patient's care is coordinated with Lauren Johnston PA-C. Please refer to the documentation above for details of patient's presentation and for discussion of other issues. Subjective Patient was seen and examined in room 316. Follow-up lumbar procedure by Dr. Grossman POD #1. Overall did not sleep well last night, "they were checking my vitals every hour." Complains of mild low back discomfort. He did tolerate CPAP last evening. He ate most of his breakfast and denies any nausea or vomiting. He further denies fever, chills, sweats, dizziness, chest pain, short breath, cough. Continues to have Khalil catheter in place and this will be removed post PT today. He is passing flatus. Review of Systems Review of Systems: All systems reviewed & are unremarkable except as noted in HPI & below Physical Exam Physical Exam: Gen: WD/WN, M, NAD, A&O x3 HEENT: Normocephalic, atraumatic, conjunctivae moist, sclerae anicteric, mucous membranes moist. Lung: Clear to Auscultation bilaterally, no wheezes/rales/rhonchi Heart: Regular rate, regular rhythm, no murmurs, rubs, or gallops Abdomen: soft, NT, ND +BS x 4 Extremities: No edema, teds/SCDs in place, lumbar dressing CDI, ERNESTO drain with serosanguineous drainage Skin: Warm, no rash, negative turgor. : Khalil catheter in place draining yellow urine Results & Data Results & Data ([facility]) Vital Signs (Past 12 Hours) Vital Signs Temp Pulse Resp BP Pulse Ox 07/08/20 07:19 37.2 C 71 16 127/76 95 07/08/20 06:01 95 07/08/20 03:55 37.3 C 69 16 128/78 99 07/07/20 23:38 36.7 C 66 14 113/71 99 07/07/20 21:33 65 100 Laboratory Results Short CBC 07/07/20 07/08/20 Range/Units 18:37 06:06 WBC 17.89 H 14.69 H (4.8-10.8) K/uL Hgb 13.9 L 13.1 L (14.0-18.0) g/dL Hct 41.7 L 39.4 L (42-52) % Plt Count 184 198 (130-400) K/uL BMP 07/08/20 06:06 Sodium 138 Potassium 4.5 Chloride 101 Carbon Dioxide 27 BUN 22 H Creatinine 1.20 Glucose 128 H Calcium 8.0 L Medications Administered Gabapentin (Gabapentin 300 Mg Cap) 300 mg PO TID JANET Stop: 08/06/20 20:59 Last Admin: 07/08/20 08:27 Dose: 300 mg Documented by: [id number] Admin: 07/07/20 20:15 Dose: 300 mg Documented by: [id number] Ketorolac Tromethamine (Ketorolac 30 Mg/Ml Vial) 30 mg IV Q6H JANET Stop: 07/08/20 11:31 Last Admin: 07/08/20 05:39 Dose: 30 mg Documented by: [id number] Admin: 07/07/20 23:26 Dose: 30 mg Documented by: [id number] Admin: 07/07/20 18:27 Dose: 30 mg Documented by: [id number] Oxycodone HCl (Oxycodone Hcl Ir 5 Mg Tab (Immediate Release)) 5 - 10 mg PO Q4H PRN PRN Reason: Moderate-Severe Pain & Pre PT Stop: 07/21/20 16:49 Last Admin: 07/07/20 21:33 Dose: 10 mg Documented by: [id number] Polyethylene Glycol (Polyethylene (Miralax) 17 Gm Pack) 17 gm PO Q6 JANET Stop: 08/07/20 05:59 Last Admin: 07/08/20 05:39 Dose: 17 gm Documented by: [id number] Senna/Docusate Sodium (Docusate Sodium/Senna 50/8.6mg Tab) 2 tab PO HS JANET Stop: 08/06/20 20:59 Last Admin: 07/07/20 20:16 Dose: 2 tab Documented by: [id number] Discontinued Medications Acetaminophen (Acetaminophen 500 Mg Tab) 1,000 mg PO PREOP JANET Stop: 07/07/20 18:00 Last Admin: 07/07/20 11:25 Dose: 1,000 mg Documented by: [id number] Bacitracin (Bacitracin Inj 50,000 Unit Vial) Confirm Administered Dose 50,000 units .ROUTE .STK-MED ONE Stop: 07/07/20 11:54 Last Admin: 07/07/20 13:02 Dose: 50,000 units Documented by: [id number] Bupivacaine HCl/Epinephrine Bitart (Bupivacaine/Epinephrine 0.25% 1:200,000 30 Ml Vial) Confirm Administered Dose 30 ml .ROUTE .STK-MED ONE Stop: 07/07/20 11:55 Last Admin: 07/07/20 13:02 Dose: 30 ml Documented by: [id number] Celecoxib (Celebrex 200 Mg Cap) 200 mg PO PREOP JANET Stop: 07/07/20 18:00 Last Admin: 07/07/20 11:52 Dose: 200 mg Documented by: [id number] Gabapentin (Gabapentin 900 Mg Dose) 900 mg PO PREOP JANET Stop: 07/07/20 18:00 Last Admin: 07/07/20 11:51 Dose: 600 mg Documented by: [id number] Lactated Ringer's (Lr) 1,000 mls @ 15 mls/hr IV PREOP JANET Stop: 07/08/20 05:59 Last Infusion: 07/07/20 12:20 Dose: 0 mls/hr Documented by: [id number] Admin: 07/07/20 11:52 Dose: 15 mls/hr Documented by: [id number] Cefazolin Sodium (Ancef 2000mg) 2,000 mg in 15 mls @ 3.75 mls/min IV PREOP JANET Stop: 07/07/20 18:00 Last Admin: 07/07/20 12:17 Dose: 3.75 mls/min Documented by: [id number] Lactated Ringer's (Lr) 1,000 mls @ 150 mls/hr IV .Q6H40M JANET Stop: 08/06/20 16:49 Last Admin: 07/08/20 06:14 Dose: Not Given Documented by: [id number] Infusion: 07/08/20 05:39 Dose: 0 mls/hr Documented by: [id number] Admin: 07/07/20 23:26 Dose: 150 mls/hr Documented by: [id number] Infusion: 07/07/20 23:26 Dose: 150 mls/hr Documented by: [id number] Admin: 07/07/20 16:55 Dose: 150 mls/hr Documented by: [id number] Cefazolin Sodium (Ancef 2000mg) 2,000 mg in 15 mls @ 3.75 mls/min IV Q8H JANET; Protocol Stop: 07/08/20 04:18 Last Admin: 07/08/20 03:56 Dose: 3.75 mls/min Documented by: [id number] Admin: 07/07/20 20:14 Dose: 3.75 mls/min Documented by: [id number] Miscellaneous ( Floseal Hemostatic Matrix 10ml) 20 ml TOP ONCE ONE Stop: 07/07/20 12:55 Last Admin: 07/07/20 15:31 Dose: 19 ml Documented by: [id number]
[2020-07-08] MEDS: OXYCODONE HCL IR 5 MG TAB (IMMEDIATE RELEASE) PO PRN ×2 (09:34→20:53)
[2020-07-08] MEDS: DEXAMETHASONE SOD PHOSPHATE 8 MG in SYRINGE 0 ML IV SCH (09:47)
[2020-07-08] MEDS ORDERED: LISINOPRIL/HCTZ 10/12.5MG TAB PO SCH (11:30)
[2020-07-08] MEDS: ATORVASTATIN 40 MG TAB PO SCH (12:04)
[2020-07-08] MEDS: PARoxetine HCL 20 MG TAB PO SCH (12:04)
[2020-07-08] MEDS ORDERED: lisinopriL 10 MG TAB PO ONE (16:50)
[2020-07-08] MEDS: DOCUSATE SODIUM/SENNA 50/8.6MG TAB PO SCH (20:15)
[2020-07-08] MEDS: ZOLPIDEM TARTRATE 10 MG TAB PO PRN (21:31)
[2020-07-08] MEDS: ACETAMINOPHEN 500 MG TAB PO PRN (23:29)
[2020-07-09] MEDS: POLYETHYLENE (MIRALAX) 17 GM PACK PO SCH ×2 (05:39→11:27)
[2020-07-09 06:28] LABS: Hematocrit (blood only) 32.7 % (42-52); Hemoglobin 10.9 g/dL (14.0-18.0); Mean Corpuscular Hemoglobin 29.2 pg (25-34); Mean Corpuscular Hgb Conc 33.3 g/dL (32-36); Mean Corpuscular Volume 87.7 fL (80-100); Mean Platelet Volume 11.2 fL (7.4-10.4); Platelet Count 150 K/uL (130-400); RDW Coefficient of Variation 13.9 % (11.5-14.5); RDW Standard Deviation 44.3 fL (36.4-46.3); Red Blood Count 3.73 M/uL (4.7-6.1); White Blood Count 11.13 K/uL (4.8-10.8)
[2020-07-09 06:57] LABS: BUN Creatinine Ratio 21.3 (10-20); Calcium 8.3 mg/dl (8.5-10.1); Creatinine Clr Calc Pharmacy 105.3 ml/min; Est GFR (African American) 102.9; Est GFR (Non-African American) 88.8; Potassium 3.9 mmol/L (3.5-5.1)
[2020-07-09] MEDS: OXYCODONE HCL IR 5 MG TAB (IMMEDIATE RELEASE) PO PRN ×2 (07:28→18:34)
[2020-07-09 07:59] LABS: Estimated Average Glucose 103 mg/dl; Hemoglobin A1C 5.2 % (4.5-5.6)
[2020-07-09] MEDS: DEXAMETHASONE SOD PHOSPHATE 8 MG in SYRINGE 0 ML IV SCH (08:12)
[2020-07-09] MEDS: GABAPENTIN 300 MG CAP PO SCH ×3 (08:12→20:04)
--- NOTE | 2020-07-09 08:40 | Hospitalist Progress Note ---
Date of Service July 09, 2020 Assessment & Plan (1) Neurogenic claudication due to lumbar spinal stenosis: Status post L3-S1 lumbar decompression fusion by Dr. Grossman POD #2 EBL 1275 mL; ERNESTO drain to 1025mL Tolerated procedure well Pain/wound management per Ortho Activity and therapy as directed by Ortho Encourage incentive spirometry (2) Acute blood loss anemia: Preop hemoglobin 16.1 Today H&H 10.9 and 32.7 Patient with a EBL of 1275 mL and current ERNESTO drain at 1025 mL Continue to monitor H&H, vitals stable transfuse hgb < 8 (3) Leucocytosis: improving 11.13k no s/sx of infection, monitor (4) Elevated fasting glucose: BSG 128 yesterday, 109 today A1C 5.2 (5) Hypertension: Blood pressure improving. Lisinopril restarted. continue to monitor BP If pt to be discharged today - okay to resume HCTZ at discharge (6) Depressive disorder: Continue Paxil mood stable (7) Hyperlipidemia: continue statin (8) Sleep apnea: CPAP @ Disposition: per primary Follow up: PCP @ [facility] in [place] upon discharge Pt was seen and examined in collaboration with Dr. Shanks, please see addendum Thank you for this consultation. We will follow the patient with you during their hospital stay. You can reach a [facility]05 via pager @ [phone]. Admission and Anticipated Discharge Date Admission Date: July 07, 2020 Supervising Physician Co-Signing Physician Notes Patient is seen and examined at bedside. Feels better today. Sitting in chair comfortably this morning. Reports back soreness at the site of surgery. Had physical therapy earlier today. No other specific complaints. Had BM today. Denies chest pain, shortness of breath, nausea, abdominal pain. On exam patient is moderately built and nourished, no apparent distress, normocephalic atraumatic, lungs are clear to auscultation, S1-S2, no murmur, abdomen soft, nontender, normal bowel sounds, Back--surgical site in dressing,+ drain, alert, awake, oriented, grossly no focal neurological deficits, no pedal edema. Patient is consulted for postop medical management. S/P lumbar decompression fusion surgery by Dr. Grossman for neurogenic claudication due to lumbar spinal stenosis. Post OP Day#2 , acute blood loss anemia noted. No indication for blood transfusion currently. Monitor CBC. Hb:10.9 today. Pain control, activity, DVT prophylaxis, wound care as per primary team. Continue bowel regimen to prevent constipation. Continue lisinopril, Resume HCTZ. Leukocytosis trending towards normal. I personally reviewed the record. Patient is interviewed and examined at bedside. Patient's care is coordinated with Lauren Johnston PA-C. Please refer to the documentation above for details of patient's presentation and for discussion of other issues. Subjective Patient was seen and examined in room 316. Follow-up lumbar procedure by Dr. Grossman POD #2. Feeling much better this morning. "I feel more clear." Complains of back overall stiffness. Feels therapy went well yesterday, "I made like 30 laps. Urinating w/o difficult since cath has been removed. +BM x 1.He denies fever, chills, sweats, dizziness, chest pain, short breath, cough. Good appetite. Review of Systems Review of Systems: All systems reviewed & are unremarkable except as noted in HPI & below Physical Exam Physical Exam: Gen: WD/WN, M, NAD, sitting up in bedside chair A&O x3 HEENT: Normocephalic, atraumatic, conjunctivae moist, sclerae anicteric, mucous membranes moist. Lung: Clear to Auscultation bilaterally, no wheezes/rales/rhonchi Heart: Regular rate, regular rhythm, no murmurs, rubs, or gallops Abdomen: soft, NT, ND +BS x 4 Extremities: No edema, teds/SCDs in place, lumbar dressing CDI, ERNESTO drain with serosanguineous drainage Skin: Warm, no rash, negative turgor. Results & Data Results & Data ([facility]) Vital Signs (Past 12 Hours) Vital Signs Temp Pulse Pulse Resp BP Pulse Ox 07/09/20 05:59 36.6 C 64 16 126/85 97 07/09/20 03:19 84 12 96 07/08/20 23:30 37.3 C 81 16 116/74 96 07/08/20 23:00 72 14 99 Laboratory Results Short CBC 07/09/20 Range/Units 06:01 WBC 11.13 H (4.8-10.8) K/uL Hgb 10.9 L (14.0-18.0) g/dL Hct 32.7 L (42-52) % Plt Count 150 (130-400) K/uL [facility] 07/09/20 06:01 Sodium 138 Potassium 3.9 Chloride 102 Carbon Dioxide 30 BUN 21 H Creatinine 0.97 Glucose 109 H Calcium 8.3 L
--- NOTE | 2020-07-09 10:36 | Orthopedic Progress Note ---
Date of Service July 09, 2020 Assessment & Plan (1) Neurogenic claudication due to lumbar spinal stenosis: Admission and Anticipated Discharge Date Admission Date: July 07, 2020 Stable continue physical therapy monitor ERNESTO output anticipate discharge home tomorrow. Subjective Back pain is controlled leg symptoms markedly improved. Physical Exam Physical Exam: Patient is in the chair at the bedside. Is good strength testing. Appears comfortable. Results & Data ([facility]) Vital Signs (Past 12 Hours) Vital Signs Temp Pulse Pulse Resp BP Pulse Ox 07/09/20 05:59 36.6 C 64 16 126/85 97 07/09/20 03:19 84 12 96 07/08/20 23:30 37.3 C 81 16 116/74 96 07/08/20 23:00 72 14 99
[2020-07-09] MEDS: PARoxetine HCL 20 MG TAB PO SCH (11:27)
[2020-07-09] MEDS: ATORVASTATIN 40 MG TAB PO SCH (11:27)
[2020-07-09] MEDS: DOCUSATE SODIUM/SENNA 50/8.6MG TAB PO SCH (18:38)
[2020-07-09] MEDS: ZOLPIDEM TARTRATE 10 MG TAB PO PRN ×2 (21:41→22:24)
[2020-07-10 06:50] LABS: Hematocrit (blood only) 29.9 % (42-52); Hemoglobin 9.8 g/dL (14.0-18.0); Mean Corpuscular Hemoglobin 29.1 pg (25-34); Mean Corpuscular Hgb Conc 32.8 g/dL (32-36); Mean Corpuscular Volume 88.7 fL (80-100); Mean Platelet Volume 10.8 fL (7.4-10.4); Platelet Count 141 K/uL (130-400); RDW Coefficient of Variation 13.7 % (11.5-14.5); RDW Standard Deviation 44.3 fL (36.4-46.3); Red Blood Count 3.37 M/uL (4.7-6.1); White Blood Count 9.92 K/uL (4.8-10.8)
[2020-07-10 07:21] LABS: BUN Creatinine Ratio 21.9 (10-20); Creatinine Clr Calc Pharmacy 124.5 ml/min
[2020-07-10] MEDS: ACETAMINOPHEN 500 MG TAB PO PRN (09:21)
[2020-07-10] MEDS: GABAPENTIN 300 MG CAP PO SCH (09:21)
[2020-07-10] MEDS: DEXAMETHASONE SOD PHOSPHATE 8 MG in SYRINGE 0 ML IV SCH (09:22)
--- NOTE | 2020-07-10 11:23 | Discharge Summary ---
Date of Service July 10, 2020 Admission HPI Per Admitting Provider This is a 55-year-old male who presents with chronic persistent back pain and leg pain after failing course of nonoperative care is here for surgical invention. Principal Diagnosis Lumbar spinal stenosis with neurogenic claudication Discharge Data Allergies Allergy/AdvReac Type Severity Reaction Status Date / Time trazodone AdvReac Intermediate RAPID Verified 07/07/20 11:44 HEART RATE capsaicin AdvReac Insomnia Verified 07/07/20 11:44 Consultations 07/07/20 16:50 Consult Case Management - Discharge Planning Routine Consult Hospitalist Routine Procedures Performed Operation Date: 07/07/20 12:55 Actual Procedures p L3-S1 Decompression and Fusion, Interbody cage at L3-L4, L4-L5, L5-S1, Spinal Cord Monitoring(Not Applicable) - Gonsalo Grossman DO Ordered Studies 07/07/20 12:55 FL fluoroscopy <1hr Routine FL lumbar spine 2-3V Routine Hospital Course (1) Neurogenic claudication due to lumbar spinal stenosis: Patient underwent multilevel lumbar decompression fusion tolerated well second orthopedic for possibly. Postop day 1 is up and ambulating progressed to postop day 2. Postop day 3 ERNESTO drain decreased appropriately. Pain well controlled. Strength intact. Subsequent discharge home. Discharge orders instructions on the chart for further review. Total Time Total Time Spent Total Time Spent (In Minutes): 20 minutes Discharge Plan Discharge Items Patient Disposition: Home - Self-Care Reason For Visit: Other Intervertebral Disc Degeneration Discharge Diagnosis: Lumbar spinal stenosis with neurogenic claudication Activity: As commented below Non-emergency contact: Primary Care Provider Call non-emergency contact if: you have any medication questions Follow-up/Referrals: Ansley Padgett PA-C [Primary Care Provider] - Diet: Regular Addtl Attending Provider Instructions: ACTIVITY RECOMMENDATIONS: SELF CARE INSTRUCTIONS AFTER THORACIC/LUMBAR FUSIONS 1. You may walk to your tolerance. It is good exercise for your legs and back. Expect some back and intermittent leg aches and pains. 2. You may perform "counter-top" level activities (make a sandwich, josé luis with a project, etc.). 3. No bending or lifting of more than 10 pounds or back twisting of any nature (roll like a log when turning in bed). 4. You may ride in a car for 20-30 minutes at a time. No driving until after your first visit with your doctor. 5. Frequent changes of position and restricting sitting to 30 minutes at a time will help limit the amount of back spasms and stiffness you may experience. 6. You may discontinue the use of ambulatory aids (cane, crutches, etc.) once your strength and confidence allow. 7. You may mechanical drawing teacher the shower and let water strike your incision when you arrive home at least once daily. Do not take a tub bath, sit in a hot tub or go into a swimming pool until after your first recheck in the office. SPECIAL CARE INSTRUCTIONS: VERY IMPORTANT TO READ AND REVIEW A. Your surgical incision has been closed with a cosmetic suture under the skin that will dissolve in about 6 weeks. In 14 days, you can use a pair of clean scissors and cut the suture that is left outside of the skin at the ends of your incision. 1. The small skin tapes can be removed 7 days after surgery if they have not fallen off by that point. 2. You may keep the wound open to air as much as possible to promote healing after post-op day number 5 unless told otherwise by your doctor. 3. If you think the wound looks like it is becoming infected (redness or worsening drainage) and/or you are experiencing fever, chill or worsening back pain and muscle spasms, contact the office so that we may evaluate you as soon as possible. B. Complications are uncommon, but please contact us if you have any signs or symptoms of: 1. wound infection (fever higher than 102.5 degrees F, redness, separation of wound, drainage, or increasing pain from the incision) 2. blood clots in legs (pain, swelling, redness and warmth in legs) 3. urinary tract infection (fever higher than 102.5 degrees F, burning upon urination or increased frequency of urination) 4. nerve problems (inability to walk on your toes or heels, numbness, loss of bowel or bladder control) 5. any other symptoms that concern you C. Please call the office at if you have any concerns or questions about your operation or recovery. D. No smoking! Smoking drastically decreases the chance of a solid fusion. E. Do not take any anti-inflammatory medications (Indocin, Advil, Motrin, Aspirin, Naprosyn, etc.) as these may inhibit the chance of a solid fusion. Tylenol is okay to take for pain. MANAGING PAIN AFTER SPINAL SURGERY 1. Narcotic medication is intended for short-term use and will be provided for surgical pain. Surgical pain usually lasts for a period of 4-6 weeks. Narcotic medication includes Percocet, Vicodin, Darvocet, Tylenol #3 or Lortab. 2. Longer-term pain is more appropriately treated with non-narcotic medication such as Tylenol ES. 3. Muscle spasm is not appropriately treated with narcotics. Muscle relaxers such as Soma, Flexeril or Skelaxin can be used along with Tylenol ES. 4. Remember that we all live with some "aches and pains". This is not unusual or uncommon after an injury or as we get older. a. Back pain is expected and may include muscle spasms for 4 to 6 weeks after surgery. The pain should gradually improve. If the pain worsens for no apparent reason, please contact the office. b. Intermittent leg pain may also be experienced and should not be concerned about unless it worsens for no apparent reason. If so, please contact the office. 5. We will provide appropriate medication within the normal guidelines of their prescribed use. We will also be very cautious and aware of potential abuse and extended duration of patients' medication needs. a. Pain medications are for your comfort and to assist with sleep and rest so that the tissue can heal. They are not provided in order to return to normal activity and should not be used through the day. To do so or worsening pain at night can result from ongoing tissue damage and development of tolerance to the prescribed medicine. 6. Please allow 2-3 days to process refills. Prescriptions will not be mailed but must be picked up at the office. FOLLOW UP VISIT: Keep your scheduled follow-up appointment. Any questions, please call the office at . Pending Studies at Discharge: No Stand-Alone Forms: My [employer], Smoking Cessation Medications and DC Order Prescriptions: New tramadol 50 mg tablet 50 mg PO Q6H PRN (Reason: pain, moderate) Qty: 20 RF: 0 oxycodone 5 mg tablet 5 mg PO Q6H PRN (Reason: pain, severe) Qty: 20 RF: 0 Continued celecoxib [Celebrex] 200 mg Capsule 200 mg PO QDL RF: 0 cyclobenzaprine 10 mg Tablet 10 mg PO BID PRN (Reason: Muscle Spasm) RF: 0 atorvastatin 40 mg Tablet 40 mg PO QDL RF: 0 paroxetine HCl 30 mg Tablet 60 mg PO QDL RF: 0 lisinopril-hydrochlorothiazide 10-12.5 mg Tablet 1 tab PO QDL RF: 0 zolpidem 10 mg Tablet 10 mg PO HS PRN (Reason: Insomnia) RF: 0 gabapentin 300 mg Tablet 300 mg PO TID RF: 0 Discharge Orders: Discharge Order (Routine); Ordered 07/10/20 Ordered By: Gonsalo Grossman Admission Data Admit Date/Time: 07/07/20 16:02 Attending Provider: Gonsalo Grossman Admit Provider: Gonsalo Grossman Primary Care Provider: Ansley Padgett Other Providers: Cruzito Shanks
--- NOTE | 2020-07-10 12:16 | Hospitalist Progress Note ---
Date of Service July 10, 2020 Assessment & Plan (1) Neurogenic claudication due to lumbar spinal stenosis: Status post L3-S1 lumbar decompression fusion by Dr. Grossman POD #3 EBL 1275 mL; ERNESTO drain to 1025mL Tolerated procedure well Pain control /wound Care/DVT Px as per Ortho Continue PT/OT Continue Incentive Spirometry Bowel regimen to prevent constipation (2) Acute blood loss anemia: Preop hemoglobin 16.1 Today Hb 9.8 Patient with a EBL of 1275 mL and current ERNESTO drain at 1025 mL Continue to monitor H&H, vitals stable Transfuse hgb < 8 Monitor (3) Leucocytosis: Likely reactive Resolved r (4) Elevated fasting glucose: Hb A1C 5.2 (5) Hypertension: Stable Continue home medications (6) Depressive disorder: Continue Paxil mood stable (7) Hyperlipidemia: continue statin (8) Sleep apnea: CPAP @ HS Disposition: per primary Admission and Anticipated Discharge Date Admission Date: July 07, 2020 Subjective Patient is seen and examined at bedside States feeling well today Back pain is well controlled Denies chest pain, shortness of breath, dizziness, nausea, abdominal pain Plan to discharge home today Review of Systems Review of Systems: All systems reviewed & are unremarkable except as noted in HPI & below Physical Exam Physical Exam: Physical Exam: Vitals signs as noted above General Appearance:Moderately built and nourished, no apparent distress Head: normocephalic, Atraumatic Eyes: normal inspection, EOMI Neck: supple, Trachea midline Respiratory/Chest: Normal breath sounds, CTA Cardiovascular: S1, S2, No murmur Abdomen/GI:Soft, Non tender, Bowel sounds present Back--surgical site in dressing,+ drain Extremities/Musculoskelatal:normal inspection, no edema Neurologic/Psych:AAOX3, grossly no focal neurological deficits Skin: normal color, warm Results & Data Results & Data ([facility]) Vital Signs (Past 12 Hours) Vital Signs Temp Pulse Pulse Resp BP Pulse Ox 07/10/20 07:04 36.7 C 65 16 124/83 100 07/10/20 03:20 62 16 94 Laboratory Results Short CBC 07/10/20 Range/Units 06:24 WBC 9.92 (4.8-10.8) K/uL Hgb 9.8 L (14.0-18.0) g/dL Hct 29.9 L (42-52) % Plt Count 141 (130-400) K/uL [facility] 07/10/20 06:24 Sodium 140 Potassium 4.0 Chloride 106 Carbon Dioxide 28 BUN 18 Creatinine 0.82 Glucose 100 H Calcium 8.0 L
[2020-07-10] MEDS: PARoxetine HCL 20 MG TAB PO SCH (12:28)
[2020-07-10] MEDS: ATORVASTATIN 40 MG TAB PO SCH (12:28)
== END 2020-07-10 12:40 | disposition home or self-care (01) | DRG 454 ==
LOC: ASU 11:10 → 3E 16:02

== ENCOUNTER 2022-12-21 06:06 | Inpatient (IN) ==
--- NOTE | 2022-12-07 14:08 | PAT Medication Instructions ---
Medication Instructions Date of Service December 07, 2022 Home Medications Medication List: atorvastatin 40 mg tablet 40 mg PO QAM celecoxib 200 mg capsule (Celebrex) 200 mg PO QAM lisinopril 10 mg-hydrochlorothiazide 12.5 mg tablet 1 tab PO QAM paroxetine HCl 30 mg tablet 60 mg PO QAM zolpidem 10 mg tablet 10 mg PO HS Buspar (unknown dosage) 1 tab PO QAM Medical Marijuana 1 dose PO UD PRN Pain gabapentin 300 mg capsule 300 mg PO TID multivitamin 1 tab PO QAM ASK your surgeon for instructions celecoxib 200 mg capsule (Celebrex) 200 mg PO QAM DO NOT take the morning of surgery multivitamin 1 tab PO QAM lisinopril 10 mg-hydrochlorothiazide 12.5 mg tablet 1 tab PO QAM Medical Marijuana 1 dose PO UD PRN Pain Take morning of surgery With a small sip of water, OTHERWISE NOTHING TO EAT OR DRINK AFTER MIDNIGHT: paroxetine HCl 30 mg tablet 60 mg PO QAM atorvastatin 40 mg tablet 40 mg PO QAM gabapentin 300 mg capsule 300 mg PO TID Buspar (unknown dosage) 1 tab PO QAM Take evening before surgery gabapentin 300 mg capsule 300 mg PO TID zolpidem 10 mg tablet 10 mg PO HS Medical Marijuana 1 dose PO UD PRN Pain (may use if needed) Other Notes If you have any questions please call us at [phone] or [phone] or [phone] or [phone]
--- NOTE | 2022-12-13 11:14 | Anesthesiology Consultation ---
Date of Service December 13, 2022 Assessment & Plan (1) Encounter for pre-operative examination: - history of glidescope intubation: L3-S1 decompression-fusion 07/07/2020 Grade 1 view, glidescope #4, ETT 8. Chart Review Chart Review: Acceptable Risk for Surgery and Patient seen in Pre Admission Testing Teaching & Discussion Pre-Anesthesia Teaching/Discussion Notes: Instructed NPO after midnight before surgery, except medications with 15 cc of water. Medication instructions provided according to the PAT guidelines. History Surgery Operation Date: 12/21/22 07:45 Proposed Procedures p L2-L3 Decompression and Fusion, Spinal Cord Monitoring - Gonsalo Grossman DO Height/Weight Height: 5 ft 7 in Weight: 104.326 kg Allergies Allergy/AdvReac Type Severity Reaction Status Date / Time trazodone Allergy Severe RAPID Verified 12/07/22 12:44 HEART RATE capsaicin Allergy Intermediate SKIN Verified 12/07/22 12:44 BURNING Medications Home Medications Medication Instructions Recorded Confirmed Last Taken atorvastatin 40 mg tablet 40 mg PO QAM 06/03/20 12/07/22 07/06/20 12:00 celecoxib 200 mg capsule (Celebrex) 200 mg PO QAM 06/03/20 12/07/22 07/06/20 12:00 lisinopril 10 1 tab PO QAM 06/03/20 12/07/22 07/06/20 12:00 mg-hydrochlorothiazide 12.5 mg tablet paroxetine HCl 30 mg tablet 60 mg PO QAM 06/03/20 12/07/22 07/07/20 09:00 zolpidem 10 mg tablet 10 mg PO HS 06/03/20 12/07/22 07/06/20 22:00 Buspar?? 1 tab PO QAM 12/07/22 Unknown Medical Marijuana 1 dose PO UD PRN Pain 12/07/22 12/07/22 Unknown gabapentin 300 mg capsule 300 mg PO TID 12/07/22 12/07/22 Unknown multivitamin 1 tab PO QAM 12/07/22 12/07/22 Unknown Past Medical History Medical History (Updated 12/13/22 @ 11:36 by Diana Conklin PA-C) Anxiety and depression Difficult intubation lumbar fusion 07/07/2020 Grade 1 view, glidescope #4, ETT 8. Hearing deficit BL SUAZO Hx of myocardial infarction 5 yrs ago>SHOWN ON EKG Hyperlipidemia Hypertension controlled, stable per pt IBS (irritable bowel syndrome) Mild - no recent flares PTSD (post-traumatic stress disorder) Sleep apnea CPAP-compliant Spinal stenosis Patient denies h/o stroke, seizures, heart failure, DM, blood clots or blood transfusions. Exercise / Class Metabolic Activity II 4-5 Yardwork/Stairs/Walk up hill (denies chest discomfort or shortness of breath with 1 FOS) Past Family History Family History Father Diabetes Other No family history of adverse response to anesthesia Past Surgical History Surgical History (Updated 12/13/22 @ 11:36 by Diana Conklin PA-C) H/O metal removed from eye H/O right wrist surgery cyst excision History of carpal tunnel release of both wrists History of colonoscopy History of lumbar surgery FUSION X 2; 07/07/2020 Grade 1 view, glidescope #4, ETT 8. History of tooth extraction History of total knee replacement RT/LEFT Past Anesthesia History No Hx of Anesthesia Complications and No Family Hx of Anesthesia Complications History of PONV No Hx of PONV and No Hx of Motion Sickness Social History Smoking Status: Former smoker tobacco type: cigarettes Do You Dip or Chew Tobacco: No Smoking End Date: AGE 32 Hx Alcohol Use: Yes alcohol intake frequency: holidays/special occasions only substance use type: does not use Review of Systems Patient denies chest pain, shortness of breath, dyspnea on exertion, reflux, fever, chills, cough, wheezing, or palpitations. Physical Exam Vital Signs Vitals BP 143/90 P 61 TEMP 98.8 SP02 100% on RA RESP 18 Physical Full cervical extension range of motion without pain TMD 3.5 finger breadths Mallampati Score 2 Dentition: 3 permanent bridges; denies chipped or loose teeth, caps/crowns, or implants Lungs: normal respiratory effort. Clear throughout to auscultation, no adventi tious breath sounds Cardiac: regular rate and rhythm, no murmurs noted Carotid arteries: negative bruit bilat Lab Results Anesthesia Preop Results Results Anesthesia Widget: WBC 5.09 K/ul (4.8-10.8) 12/13/22 Hgb 16.3 g/dl (14.0-18.0) 12/13/22 Hct 48.1 % (42.0-52.0) 12/13/22 Plt 214 K/uL (130-400) 12/13/22 Na 135 mmol/L (136-145) L 12/13/22 K 4.0 mmol/L (3.5-5.1) 12/13/22 Cl 98 mmol/L (98-107) 12/13/22 CO2 32 mmol/L (21-32) 12/13/22 BUN 16 mg/dl (6-23) 12/13/22 Creat 0.95 mg/dl (0.6-1.4) 12/13/22 Glucose Level 83 mg/dl (70-99(Fasting)) 12/13/22 PT 11.6 Seconds (9.0-12.0) 12/13/22 PTT 31.6 Seconds (21.0-31.0) H 12/13/22 INR 1.1 (0.9-1.1) 12/13/22 Urine Color Yellow 12/13/22 Urine Appearance Clear (Clear) 12/13/22 Urine pH 6.5 (4.5-7.5) 12/13/22 Urine Specific [place] 1.008 (1.000-1.030) 12/13/22 Urine Protein Negative (Negative) 12/13/22 Urine Glucose (UA) Negative (Negative) 12/13/22 Urine Ketones Negative (Negative) 12/13/22 Urine Blood Negative (Negative) 12/13/22 Urine Nitrite Negative (Negative) 12/13/22 Urine Bilirubin Negative (Negative) 12/13/22 Urine Urobilinogen Negative (Negative) 12/13/22 Urine Leukocyte Esterase Negative (Negative) 12/13/22 Blood Type O Positive 12/13/22 Antibody Screen NEGATIVE 12/13/22 Testing Electrocardiogram Date: 12/07/22 NSR, rate 63 bpm Septal infarct, cited on or before 01/03/18 No significant change was found 09/28/21 Chest X-Ray Date: 12/13/22 No lines and tubes are seen. The cardiomediastinal silhouette is normal. The lungs are clear. No evidence of pleural effusion or pneumothorax. IMPRESSION: No acute chest disease. Echocardiogram Date: 02/18/22 EF 55% Mildly thickened aortic valve No significant valvular pathology Stress Test Date: 07/01/20 Exercise METS 7 MPHR 88% Negative for ischemia COVID-19 Risk Screen Screening Information COVID-19 Screen Date: 12/13/22 Exposure 21 Days Family/Household +COVID Last 21 Days: No Exposure 10 Days Any COVID Exposure Last 10 Days: No Symptoms Last 10 Days Experienced COVID Sx Last 10 Days: No + COVID 0-90 Days COVID + in Last 0-90 Days: No
[~2022-12-21 06:06] MED LIST changes: -CEFAZOLIN 2000MG 2,000 MG/15 ML SYR IV SCH; +GABAPENTIN 600 MG DOSE PO SCH; -GABAPENTIN 900 MG DOSE PO SCH; +ceFAZolin 2000MG 2,000 MG/15 ML SYR IV SCH
[2022-12-21] MEDS ORDERED: MIDAZOLAM HCL 1 MG/ML 2ML VIAL ONE (06:30)
[2022-12-21] MEDS ORDERED: fentaNYL citrate PF 100 MCG/2 ML VIAL ONE (06:35)
[2022-12-21] MEDS ORDERED: HYDROmorphone INJ 2 MG/ML SYR/VIAL ONE (06:35)
[2022-12-21] MEDS ORDERED: PROPOFOL IV EMULSION 10 MG/ML 20 ML VIAL IV ONE (06:36)
[2022-12-21] MEDS ORDERED: ROCURONIUM BROMIDE 10 MG/ML 5 ML VIAL IV ONE ×2 (06:36→08:40)
[2022-12-21] MEDS ORDERED: LIDOCAINE 2% MPF LOCAL 5 ML VIAL INFIL ONE (06:36)
[2022-12-21] MEDS ORDERED: DEXAMETHASONE SOD INJ 4 MG/ML VIAL ONE (06:37)
[2022-12-21] MEDS ORDERED: ONDANSETRON INJ 2 MG/ML 2 ML VIAL ONE (06:37)
[2022-12-21] MEDS ORDERED: ceFAZolin 330 MG/ML 1 GM VIAL ONE (07:03)
[2022-12-21] MEDS ORDERED: BUPIVACAINE/EPINEPHRINE 0.25% 1:200,000 30 ML VIAL ONE (07:03)
[2022-12-21] MEDS ORDERED: ePHEDrine sulfate 50 MG/ML AMP IV PRN (07:16)
[2022-12-21] MEDS ORDERED: ATROPINE SULFATE 0.1 MG/ML 10ML SYR IV PRN (07:16)
[2022-12-21] MEDS ORDERED: HYDROmorphone INJ 2 MG/ML SYR/VIAL IV PRN (07:16)
[2022-12-21] MEDS ORDERED: ONDANSETRON INJ 2 MG/ML 2 ML VIAL IV PRN ×2 (07:16→12:07)
[2022-12-21] MEDS ORDERED: fentaNYL citrate PF 100 MCG/2 ML VIAL IV PRN (07:16)
--- NOTE | 2022-12-21 07:35 | History & Physical Bridge Note ---
Date of Service December 21, 2022 History & Physical Bridge Note I have examined the patient, reviewed the History & Physical and in the interval since the performance of the History & Physical I have noted the following changes of clinical significance: no changes noted
--- NOTE | 2022-12-21 07:36 | History & Physical Report ---
Date of Service December 21, 2022 Assessment & Plan (1) Neurogenic claudication due to lumbar spinal stenosis: Plan: L2-L3 decompression and fusion, possible hardware removal History of Present Illness Chief Complaint: Back and bilateral leg pain Primary Care Provider: CARLOS CohenC This is a 57-year-old male presents with chronic persistent back and leg pain after failing course of nonoperative care is here for surgical intervention. Allergies Allergy/AdvReac Type Severity Reaction Status Date / Time trazodone Allergy Severe RAPID Verified 12/21/22 06:24 HEART RATE capsaicin Allergy Intermediate SKIN Verified 12/21/22 06:24 BURNING Home Medications Medication Instructions Recorded Confirmed Type atorvastatin 40 mg tablet 40 mg PO QAM 06/03/20 12/21/22 History celecoxib 200 mg capsule (Celebrex) 200 mg PO QAM 06/03/20 12/21/22 History lisinopril 10 1 tab PO QAM 06/03/20 12/21/22 History mg-hydrochlorothiazide 12.5 mg tablet paroxetine HCl 30 mg tablet 60 mg PO QAM 06/03/20 12/21/22 History zolpidem 10 mg tablet 10 mg PO HS 06/03/20 12/21/22 History Buspar?? 1 tab PO QAM 12/07/22 History Medical Marijuana 1 dose PO UD PRN Pain 12/07/22 12/21/22 History gabapentin 300 mg capsule 300 mg PO TID 12/07/22 12/21/22 History multivitamin 1 tab PO QAM 12/07/22 12/21/22 History Past Med/Surg History Medical History Anxiety and depression Difficult intubation lumbar fusion 07/07/2020 Grade 1 view, glidescope #4, ETT 8. Hearing deficit BL SUAZO Hx of myocardial infarction 5 yrs ago>SHOWN ON EKG Hyperlipidemia Hypertension controlled, stable per pt IBS (irritable bowel syndrome) Mild - no recent flares PTSD (post-traumatic stress disorder) Sleep apnea CPAP-compliant Spinal stenosis Surgical History H/O metal removed from eye H/O right wrist surgery cyst excision History of carpal tunnel release of both wrists History of colonoscopy History of lumbar surgery FUSION X 2; 07/07/2020 Grade 1 view, glidescope #4, ETT 8. History of tooth extraction History of total knee replacement RT/LEFT Family History Father Diabetes Other No family history of adverse response to anesthesia Social History Smoking Status: Former smoker Smoking End Date: AGE 32; Second Hand Exposure: No; Do You Dip or Chew Tobacco: No; Hx Alcohol Use: Yes Preferred Language: Croatian Communication Ability: Effective Airport Operations Coordinator Required: No Beliefs That Will Affect Care: None marital status: Current Living Situation: Family Current Living Situation Comment: AND 2 CHILDREN Feels Safe at Home: Yes Safety Concerns: Feels Safe At This Time Assistive Devices: CPAP, Glasses and Hearing Aid - Bilateral Physical Exam Physical Exam: Patient is alert and oriented Heart regular rhythm Lungs clear Results & Data Results & Data ([facility]) Vital Signs (Past 12 Hours) Vital Signs Temp Pulse Resp BP Pulse Ox O2 Del Method 12/21/22 06:27 Room Air 12/21/22 06:27 36.7 C 60 16 128/81 97 Room Air
[2022-12-21] MEDS ORDERED: LARYING-O-JET KIT (LTA) ONE (08:14)
[2022-12-21] MEDS ORDERED: ceFAZolin 2000MG 2,000 MG/15 ML SYR IV ONE (08:26)
[2022-12-21] MEDS ORDERED: SUGAMMADEX SODIUM 200 MG/2 ML VIAL IV ONE (08:40)
[2022-12-21] MEDS ORDERED: FLOSEAL HEMOSTATIC MATRIX 10ML TOP ONE (09:03)
[2022-12-21] MEDS ORDERED: KETOROLAC 30 MG/ML VIAL ONE (09:25)
--- NOTE | 2022-12-21 10:02 | Operative Report ---
Post Operative Report Pre & Post Diagnosis Operation Date: 12/21/22 07:45 Pre-Op Diagnosis: Lumbar spinal stenosis with neurogenic claudication Post-Op Diagnosis: Same I identified the patient and participated in the time-out.: Yes Procedure Operation Date: 12/21/22 07:45 Actual Procedures #1 removal of posterior instrumentation L3 pedicle screw and estuardo. #2 exploration of fusion L3-S1. #3 lumbar decompression bilateral medial facetectomies and foraminotomies L1-L2 L2-L3. #4 posterior spinal fusion L2-L3. #5 placement posterior instrumentation L2-S1. #6 interbody fusion L2-L3. #7 placement of Spira 11 x 26 mm cage at L2-L3. #8 placement locally harvested morselized autograft in the posterior gutters. #9 placement of I factor bone of the talus in the interbody space and posterior gutters. Surgeon Gonsalo Grossman, Textile Pin Worker None Estimated Blood Loss 450 Findings See Below Patient is 5 foot 7 weighing over 104 kg with a BMI in of 36. Patient body was did contribute to significant technical difficulty required deeper retractors longer instruments in order to perform surgery. This had at least 50% increased operative time. Specimens None Indications This is a 57-year-old male who presents above-mentioned diagnosis after failed course of nonoperative care is here for surgical invention. Description of Procedure Patient was met with identified informed consent obtained. Patient was then taken to the operative suite underwent a patient placed in a prone position the [facility] top Mikie frame. All bony prominences well-padded eyes inspected to ensure no external placement upon them. This point lumbar spine was prepped and draped in the normal sterile fashion. Sharp dissection with assistance of Bovie cautery then performed down to and exposing the lamina and transverse processes of L2 and instrumentation at L3-S1 bilaterally. Then proceeded move the end caps and rods as well as the L3 pedicle screws bilaterally explore the fusion mass noted to be intact. Then reinserted screws in L3 new screws in L2. Proper sized estuardo was then contoured and placed. I then performed a complete laminectomy of L3 to partial and active L1 including bilaterally facetectomies and foraminotomies addressing severe spinal stenosis. By way the transforaminal approach and right complete discectomy of L2-L3 was performed endplates curetted to subcortically bone 11 x 26 mm Spira cage with I factor tapped in position. The rods then locked in final position bilaterally. The transverse processes of L2 and L3 burred to subcortical bleeding bone. I factor amount of the test and locally harvested morselized autograft was placed in the posterior gutters. 15 round ERNESTO drain inserted. The incision was then closed with 1 Vicryl the fascia 2-0 Vicryl subcutaneously and 4 Monocryl for final skin closure. Steri-Strip sterile dressings placed. Patient awakened and taken to PACU in stable condition. Please note spinal cord monitoring was utilized at the procedure no changes noted. I attest to the content of the Intraoperative Record and any orders documented therein. Any exceptions are noted below.
--- NOTE | 2022-12-21 10:17 | Fluoroscopy Report ---
FL lumbar spine 2-3V CLINICAL HISTORY: L2-3 DFI TECHNIQUE: 3 views were obtained with the C-arm in the OR with the above procedure. Total fluoroscopy time was 14.3 seconds. Radiation dose was 12.73 mGy. Comparison: Comparison is made to lumbar spine fluoroscopy 07/07/2020 FINDINGS/IMPRESSION: Intraoperative images were obtained of L2-L3 decompression and fusion. Please correlate with intraoperative fluoroscopy and operative report. ACT 112: Negative or not required by law. Electronically signed by: Gokul Chaves M.D. 12/21/2022 10:16 AM
--- NOTE | 2022-12-21 11:48 | Anesthesiology Progress Note ---
Date of Service December 21, 2022 Anesthesia Post Procedure Vital Signs Vital Signs: Temp Pulse Pulse Resp BP Pulse Ox O2 Del Method 12/21/22 11:30 71 12 119/66 96 Nasal Cannula 12/21/22 11:20 36.8 C 79 12 122/68 98 Nasal Cannula 12/21/22 11:10 92 H 12 136/61 99 Oxymask 12/21/22 11:00 83 12 111/66 98 Oxymask 12/21/22 10:50 78 10 L 121/65 99 Oxymask 12/21/22 10:44 36.3 C L 80 10 L 127/68 99 Oxymask 12/21/22 06:27 Room Air 12/21/22 06:27 36.7 C 60 16 128/81 97 Room Air O2 Flow Rate 12/21/22 11:30 2 12/21/22 11:20 2 12/21/22 11:10 5 12/21/22 11:00 10 12/21/22 10:50 10 12/21/22 10:44 10 12/21/22 06:27 12/21/22 06:27 Pain Intensity Bilateral Lower Back: Pain Intensity: 3 Transfer of Care Handoff Completed per policy Notes Mental Status: alert / awake / arousable and participated in evaluation Patient Amnestic to Procedure: Yes Nausea / Vomiting: adequately controlled Pain: adequately controlled Airway Patency, RR, SpO2: stable & adequate BP & HR: stable & adequate Hydration State: stable & adequate Anesthetic Complications: no major complications apparent and Pt Satisfied with anesthetic care
[2022-12-21] MEDS ORDERED: MAGNESIUM HYDROXIDE SUSP 30 ML UDC PO PRN (12:07)
[2022-12-21] MEDS ORDERED: HYDROmorphone INJ 1 MG/ML SYRINGE IV PRN (12:07)
[2022-12-21] MEDS ORDERED: NALOXONE HCL 0.4 MG/1 ML VIAL/CARP IV PRN (12:07)
[2022-12-21] MEDS ORDERED: diphenhydrAMINE Capsule 25 MG CAP PO PRN (12:07)
[2022-12-21] MEDS ORDERED: oxyCODONE HCL IR 5 MG TAB (IMMEDIATE RELEASE) PO PRN (12:07)
[2022-12-21] MEDS ORDERED: PROMETHAZINE HCL 12.5 MG in SODIUM CHLORIDE 0.9% 50 ML IV PRN (12:07)
[2022-12-21] MEDS ORDERED: LACTATED RINGER'S 1,000 ML IV SCH (12:07)
[2022-12-21] MEDS ORDERED: ALUMINUM/MAGNESIUM SUSP 30 ML UDC PO PRN (12:07)
[2022-12-21] MEDS ORDERED: SOD PHOSPHATE/SOD BIPHOSPHATE ENEMA 132 ML BTL PR PRN (12:07)
[2022-12-21] MEDS ORDERED: HYDROmorphone INJ 0.5 MG/0.5 ML SYR IV PRN (12:07)
[2022-12-21] MEDS ORDERED: LORazepam 2 MG/1 ML VIAL IV PRN (12:07)
[2022-12-21] MEDS ORDERED: METOCLOPRAMIDE HCL INJ 5 MG/ML 2 ML VIAL IV PRN (12:07)
[2022-12-21] MEDS ORDERED: ONDANSETRON 4 MG OD TAB PO PRN (12:07)
[2022-12-21] MEDS ORDERED: LORazepam 0.5 MG TAB PO PRN (12:07)
[2022-12-21] MEDS ORDERED: DO NOT ADMINISTER PNEUMOCOCCAL VACCINE PRN (12:07)
[2022-12-21] MEDS ORDERED: bisacodyL 10 MG SUPP PR PRN (12:07)
[2022-12-21] MEDS ORDERED: DO NOT ADMINISTER FLU VACCINE PRN (12:07)
[2022-12-21] MEDS ORDERED: FAMOTIDINE 20 MG TAB PO PRN (12:07)
[2022-12-21] MEDS ORDERED: hydrOXYzine HCl 25 MG TAB PO PRN (12:07)
[2022-12-21] MEDS ORDERED: NON-FORMULARY MEDICATION (Medical Marijuana 1 EA) PO PRN (12:07)
--- NOTE | 2022-12-21 12:23 | Hospitalist Consultation ---
Date of Consultation December 21, 2022 Assessment & Plan (1) Neurogenic claudication due to lumbar spinal stenosis: (2) Disc displacement, lumbar: - Pain management, bowel regimen and DVT ppx per the primary team - PT/OT consults - Follow am CBC to monitor for acute blood loss (3) Hypertension: -Patient may continue lisinopril/HCTZ (4) Hyperlipidemia: -Continue atorvastatin 40 mg daily (5) Anxiety and depression: -Continue paroxetine 40 mg daily, Wellbutrin- pt is unsure of his dose and not available in ext med hx but knows this is once daily - Pt uses ambien HS for sleep DVT PPx: - teds, scds CODE: Full code Dispo: From home, likely to remain in the hospital x 1-2 days A total of 35 minutes were spent with greater than 50% of that time face to face with the patient, personally reviewing all current laboratories, imaging studies, past medication reconciliation, outpatient chart review, and discussion with specialists to collaborate care for the patient with attending. Please see attending documentation for corrections and/or additions. Plan Attending Addendum: care coordinated with DAKOTA Judith Andres please refer to her notes for full details, I agree with her notes patient seen and examined, records reviewed by myself as well Vijay Diaz MD History of Present Illness Reason for Consultation: Medical management Requesting Physician: Dr. Grossman Attending Physician: Gonsalo Grossman, History of Present Illness This is a 57 yo M with PMhx of HTN, HLD, history of ND, sleep apnea on CPAP, spinal stenosis, PTSD, anxiety and depression. Other past medical history includes previous spinal surgeries in 2011 and then in June 2020. He presents to [facility] for an elective lumbar decompression surgery L1-L3 by Dr. Grossman on 12/21/2022. Patient is doing well, reports that he still somewhat sleepy from anesthesia. Full sensation to light touch is back in his lower extremities, he can move both of his feet, and knees. His pain is well controlled. His is present with him at bedside. He is able to current from his home medications which have been updated in the chart. He denies any other acute complaints. Allergies Allergy/AdvReac Type Severity Reaction Status Date / Time trazodone Allergy Severe RAPID Verified 12/21/22 06:24 HEART RATE capsaicin Allergy Intermediate SKIN Verified 12/21/22 06:24 BURNING Home Medications Medication Instructions Recorded Confirmed Type atorvastatin 40 mg tablet 40 mg PO QAM 06/03/20 12/21/22 History celecoxib 200 mg capsule (Celebrex) 200 mg PO QAM 06/03/20 12/21/22 History lisinopril 10 1 tab PO QAM 06/03/20 12/21/22 History mg-hydrochlorothiazide 12.5 mg tablet zolpidem 10 mg tablet 10 mg PO HS 06/03/20 12/21/22 History Medical Marijuana 1 dose PO UD PRN Pain 12/07/22 12/21/22 History gabapentin 300 mg capsule 300 mg PO TID 12/07/22 12/21/22 History paroxetine HCl 40 mg tablet 80 mg PO DAILY 12/21/22 12/21/22 History bupropion HCl 150 mg tablet,12 hr 150 mg PO DAILY 12/22/22 12/22/22 History sustained-release (Wellbutrin SR) oxycodone 5 mg tablet 5 mg PO Q6H PRN pain, severe #30 12/22/22 Rx tabs tramadol 50 mg tablet 50 mg PO Q6H PRN pain, moderate 12/22/22 Rx #30 tabs Patient History Medical History (Updated 12/21/22 @ 12:55 by Casi Huffman PA-C) Anxiety and depression Difficult intubation lumbar fusion 07/07/2020 Grade 1 view, glidescope #4, ETT 8. Hearing deficit BL SUAZO Hx of myocardial infarction 5 yrs ago>SHOWN ON EKG Hyperlipidemia Hypertension controlled, stable per pt IBS (irritable bowel syndrome) Mild - no recent flares PTSD (post-traumatic stress disorder) Sleep apnea CPAP-compliant Spinal stenosis Surgical History H/O metal removed from eye H/O right wrist surgery cyst excision History of carpal tunnel release of both wrists History of colonoscopy History of lumbar surgery FUSION X 2; 07/07/2020 Grade 1 view, glidescope #4, ETT 8. History of tooth extraction History of total knee replacement RT/LEFT Family History Father Diabetes Other No family history of adverse response to anesthesia Social History Smoking Status: Former smoker Smoking End Date: AGE 32; Second Hand Exposure: No; Do You Dip or Chew Tobacco: No; Hx Alcohol Use: Yes Preferred Language: Kosovan Communication Ability: Effective Analysis Analyst Required: No Beliefs That Will Affect Care: None marital status: Current Living Situation: Family Current Living Situation Comment: AND 2 CHILDREN Feels Safe at Home: Yes Safety Concerns: Feels Safe At This Time Assistive Devices: CPAP, Glasses and Hearing Aid - Bilateral Review of Systems Constitutional: Constitutional: No fever, sweats or chills Eyes: No diplopia, no worsening or blurred vision ENT: normal hearing, no trouble swallowing Respiratory: No cough, sputum, dyspnea at rest or on exertion Cardiovascular: No chest pain, tightness or palpitations Abdomen: No pain, nausea, vomiting, diarrhea or constipation Musculoskeletal: No joint pain, calf pain, swelling Back: Pain well controlled Neurologic: No weakness, numbness/tingling, or balance problems Psychiatric: No anxiety or depression Skin: No rash or itch Physical Exam Physical Exam: General: awake, alert, no apparent distress, + obese, BMI 36 Head: Normocephalic, atraumatic ENT: PERRL, EOMI, no pharyngeal exudate, mucous membranes moist Chest: Clear to auscultation, on room air, no adventitious breath sounds Cardiac: Regular rate and rhythm, no murmur, no JVD, normal peripheral pulses, good capillary refill Abdominal: NABS x 4 quadrants, soft, nondistended, nontender to palpation, no rebound or guarding Back: Dressing C/D/I, ERNESTO drain in place Extremities: Normal inspection, no peripheral edema or erythema, calfs nontender to palpation Psych: Normal mood and affect Neuro: AAO x 3, strength intact bilaterally and rated 5/5, no motor deficits, speech is clear, no peripheral sensory deficits Results & Data Results & Data ([facility]) Vital Signs (Past 12 Hours) Vital Signs Temp Pulse Pulse Resp BP Pulse Ox O2 Del Method 12/21/22 11:30 71 12 119/66 96 Nasal Cannula 12/21/22 11:20 36.8 C 79 12 122/68 98 Nasal Cannula 12/21/22 11:10 92 H 12 136/61 99 Oxymask 12/21/22 11:00 83 12 111/66 98 Oxymask 12/21/22 10:50 78 10 L 121/65 99 Oxymask 12/21/22 10:44 36.3 C L 80 10 L 127/68 99 Oxymask 12/21/22 06:27 Room Air 12/21/22 06:27 36.7 C 60 16 128/81 97 Room Air O2 Flow Rate 12/21/22 11:30 2 12/21/22 11:20 2 12/21/22 11:10 5 12/21/22 11:00 10 12/21/22 10:50 10 12/21/22 10:44 10 12/21/22 06:27 12/21/22 06:27
[2022-12-21] MEDS: GABAPENTIN 300 MG CAP PO SCH ×2 (13:44→21:59)
[2022-12-21] MEDS ORDERED: ACETAMINOPHEN 1,000 MG/100 ML VIAL IV PRN (14:30)
[2022-12-21] MEDS: ceFAZolin 2000MG 2,000 MG/15 ML SYR IV SCH (16:21)
[2022-12-21] MEDS: ACETAMINOPHEN 500 MG TAB PO PRN (19:21)
[2022-12-21] MEDS: ZOLPIDEM TARTRATE 10 MG TAB PO SCH (21:58)
[2022-12-21] MEDS: traMADol HCL 50 MG TABLET PO PRN (21:59)
[2022-12-21] MEDS: DOCUSATE SODIUM/SENNA 50/8.6MG TAB PO SCH (21:59)
[2022-12-22] MEDS: ceFAZolin 2000MG 2,000 MG/15 ML SYR IV SCH (01:20)
[2022-12-22 06:32] LABS: Basophils # (auto) 0.06 K/uL (0-0.2); Basophils % (auto) 0.5 %; Eosinophils # (auto) 0.05 K/uL (0-0.50); Eosinophils % (auto) 0.5 %; Hematocrit (blood only) 33.6 % (42.0-52.0); Hemoglobin 11.4 g/dl (14.0-18.0); Immature Granulocytes # (auto) 0.03 K/uL (0.01-0.20); Immature Granulocytes % (auto) 0.3 %; Lymphocytes # (auto) 1.58 K/uL (1.2-3.4); Lymphocytes % (auto) 14.2 %; Mean Corpuscular Hemoglobin 30.2 pg (25.0-34.0); Mean Corpuscular Hgb Conc 33.9 g/dL (32.0-36.0); Mean Corpuscular Volume 88.9 fL (80.0-100.0); Mean Platelet Volume 10.6 fL (9.4-12.4); Monocytes # (auto) 0.82 K/uL (0.11-0.59); Monocytes % (auto) 7.4 %; Neutrophils # (auto) 8.55 K/uL (1.40-6.50); Neutrophils % (auto) 77.1 %; Platelet Count 154 K/uL (130-400); RDW Coefficient of Variation 13.2 % (11.5-14.5); RDW Standard Deviation 43.3 fL (36.4-46.3); Red Blood Count 3.78 M/uL (4.70-6.10); White Blood Count 11.09 K/ul (4.8-10.8)
[2022-12-22] MEDS: POLYETHYLENE (MIRALAX) 17 GM PACK PO SCH ×2 (06:35→12:50)
[2022-12-22 06:40] LABS: BUN Creatinine Ratio 22.8 (10-20); Calcium 8.1 mg/dl (8.5-10.1); Creatinine Clr Calc Pharmacy 104.4 ml/min; Est GFR (African American) 108.1 ml/min; Est GFR (Non-African American) 93.3 ml/min; Potassium 3.8 mmol/L (3.5-5.1)
--- NOTE | 2022-12-22 08:13 | Orthopedic Progress Note ---
Date of Service December 22, 2022 Assessment & Plan (1) Neurogenic claudication due to lumbar spinal stenosis: Plan: This time we will continue physical therapy monitor his ERNESTO operatively discharge home next few days. Admission and Anticipated Discharge Date Admission Date: December 21, 2022 Subjective Back pain controlled leg pain markedly improved Physical Exam Physical Exam: Patient is up and ambulating. He is constricted testing. Appears comfortable. Results & Data ([facility]) Vital Signs (Past 12 Hours) Vital Signs Temp Pulse Resp BP Pulse Ox O2 Del Method 12/22/22 07:07 36.6 C 77 16 127/74 97 Room Air 12/22/22 02:38 36.7 C 75 12 142/76 H 98 Room Air 12/21/22 23:00 36.7 C 83 12 139/86 99 Room Air
[2022-12-22] MEDS: ATORVASTATIN 40 MG TAB PO SCH (08:38)
[2022-12-22] MEDS: ACETAMINOPHEN 500 MG TAB PO PRN ×2 (08:38→17:55)
[2022-12-22] MEDS: LISINOPRIL/HCTZ 10/12.5MG TAB PO SCH (08:39)
[2022-12-22] MEDS: GABAPENTIN 300 MG CAP PO SCH ×3 (08:39→22:06)
[2022-12-22] MEDS: dexAMETHasone 6 MG in SYRINGE 0 ML IV SCH (08:39)
[2022-12-22] MEDS ORDERED: PARoxetine HCL 20 MG TAB PO SCH (09:00)
--- NOTE | 2022-12-22 13:11 | Hospitalist Progress Note ---
Date of Service December 22, 2022 Assessment & Plan (1) Neurogenic claudication due to lumbar spinal stenosis: (2) Disc displacement, lumbar: Plan: - Pain management, bowel regimen and DVT ppx per the primary team - PT/OT consults - Follow am CBC to monitor for acute blood loss Acute blood loss anemia in setting of postop state Estimated blood loss of 450 ml ERNE[address]O drain in place Preop hemoglobin 16, hemoglobin today 11.4 No indication for transfusion at this time Monitor hgb (3) Hypertension: Plan: Patient may continue lisinopril/HCTZ BP stable 127/74 (4) Hyperlipidemia: Plan: Continue atorvastatin 40 mg daily (5) Anxiety and depression: Plan: Continue paroxetine 80 mg daily, Wellbutrin Pt uses ambien HS for sleep DVT PPx: - teds, scds CODE: Full code Thank you for this consultation. We will follow the patient with you during their hospital stay. You can reach a member of the [facility] Hospitalist Team 09/05 via hospitalist role on tiger text. A total of 35 minutes was spent with greater than 50% of that time personally viewing all current laboratory work and diagnostic imaging studies obtained in the ED. Additionally, I was able to view the patients past medication reconciliation and history with direct visualization in the patients chart. Included in the time above, a portion of that time was spent assessing the patient while discussing and collaborating with specialists, if necessary, and making medical decision making on treatment plan. All of the above was collaborated with DR. Diaz. Please see addendum for further details. Admission and Anticipated Discharge Date Admission Date: December 21, 2022 Supervising Physician Co-Signing Physician Notes Attending Addendum: care coordinated with DAKOTA Aguilar please refer to her notes for full details, I agree with her notes patient seen and examined, records reviewed by myself as well on exam, patient seen sitting up in bed, comfortable, in good spirits Pain manageable Ambulated in the hallways with no problems ASSESSMENT AND PLAN Acute blood loss anemia Secondary to surgery Repeat CBC tomorrow other diagnoses and plan of care as per DAKOTA Sweeney's notes Vijay Diaz MD Acute blood loss anemia Subjective Patient was seen and examined in room 324. Follow-up lumbar procedure. He is sitting up in bedside chair and overall doing well. States he is recovering significantly better than his previous back surgery. He denies fever, chills, sweats, lightheadedness, dizziness, chest pain, shortness breath, nausea, vomiting, abdominal pain. He is tolerating diet. He is passing urine without difficulty. He is passing gas but no bowel movement. Review of Systems Review of Systems: All systems reviewed & are unremarkable except as noted in HPI & below Physical Exam Physical Exam: Gen: WD/WN, obese, male, sitting up in bedside chair NAD, A&O x3 HEENT: Normocephalic, atraumatic, conjunctivae moist, sclerae anicteric, mucous membranes moist. Lung: Clear to Auscultation bilaterally, no wheezes/rales/rhonchi Heart: Regular rate, regular rhythm, no murmurs, rubs, or gallops Abdomen: Soft, NT, ND +BS x 4 Extremities: No edema, lumbar dressing CDI, ERNESTO drain with serosanguineous drainage Skin: Warm, no rash, negative turgor. Results & Data Results & Data ([facility]) Vital Signs (Past 12 Hours) Vital Signs Temp Pulse Resp BP Pulse Ox O2 Del Method 12/22/22 07:07 36.6 C 77 16 127/74 97 Room Air 12/22/22 02:38 36.7 C 75 12 142/76 H 98 Room Air Laboratory Results Short CBC 12/22/22 Range/Units 05:49 WBC 11.09 H (4.8-10.8) K/ul Hgb 11.4 L (14.0-18.0) g/dl Hct 33.6 L (42.0-52.0) % Plt Count 154 (130-400) K/uL BMP 12/22/22 05:49 Sodium 141 Potassium 3.8 Chloride 111 H Carbon Dioxide 27 BUN 21 Creatinine 0.92 Glucose 123 H Calcium 8.1 L Medications Administered Current Inpatient Medications Acetaminophen (Acetaminophen 500 Mg Tab) 1,000 mg PO Q8H PRN PRN Reason: MILD Pain Scale 1,2,3 & Pre PT Stop: 01/20/23 12:06 Last Admin: 12/22/22 08:38 Dose: 1,000 mg Al Hydrox/Mg Hydrox/Simethicone (Aluminum/Magnesium Susp 30 Ml Udc) 30 ml PO Q6H PRN PRN Reason: Dyspepsia Stop: 01/20/23 12:06 Atorvastatin Calcium (Atorvastatin 40 Mg Tab) 40 mg PO QAM [facility] Stop: 01/21/23 08:59 Last Admin: 12/22/22 08:38 Dose: 40 mg Bisacodyl (Bisacodyl 10 Mg Supp) 10 mg AR DAILY PRN PRN Reason: Constipation Stop: 01/20/23 12:06 Diphenhydramine HCl (Diphenhydramine Capsule 25 Mg Cap) 25 mg PO Q6H PRN PRN Reason: Allergic Rhinitis/Insomnia Stop: 01/20/23 12:06 Famotidine (Famotidine 20 Mg Tab) 20 mg PO Q12H PRN PRN Reason: Dyspepsia Stop: 01/20/23 12:06 Gabapentin (Gabapentin 300 Mg Cap) 300 mg PO TID [facility] Stop: 01/20/23 13:59 Last Admin: 12/22/22 08:39 Dose: 300 mg Lisinopril/HCTZ (Lisinopril/Hctz 10/12.5mg Tab) [facility] Stop: 01/21/23 08:59 Last Admin: 12/22/22 08:39 Dose: 1 tab Hydromorphone HCl (Hydromorphone Inj 1 Mg/Ml Syringe) 1 mg IV Q3H PRN PRN Reason: SEVERE Pain (Scale 7,8,9,10) Stop: 01/04/23 12:06 Hydromorphone HCl (Hydromorphone Inj 0.5 Mg/0.5 Ml Syr) 0.5 mg IV Q3H PRN PRN Reason: MODERATE Pain (Scale 4,5,6) & Pre PT Stop: 01/04/23 12:06 Hydroxyzine HCl (Hydroxyzine Hcl 25 Mg Tab) 25 mg PO Q8H PRN PRN Reason: Anxiety Stop: 01/20/23 12:06 Acetaminophen (Ofirmev) 1,000 mg in 100 mls @ 400 mls/hr IV Q8H PRN PRN Reason: Pain Rating 1-3 & Pre PT Stop: 12/22/22 14:29 Promethazine HCl 12.5 mg/ (Sodium Chloride) 50.5 mls @ 202 mls/hr IV Q6H PRN PRN Reason: Nausea &/or Vomiting Stop: 01/20/23 12:06 Dexamethasone 6 mg/ Syringe 1.5 mls @ 1 mls/min IV DAILY JANET Stop: 12/24/22 09:02 Last Admin: 12/22/22 08:39 Dose: 1 mls/min Influenza Virus Vaccine Quadrival (Do Not Administer Flu Vaccine) 1 each N/A PRN PRN PRN Reason: Notification Stop: 01/20/23 12:06 Lorazepam (Lorazepam 2 Mg/1 Ml Vial) 0.5 mg IV Q8H PRN PRN Reason: Sedation/Anxiety Stop: 01/20/23 12:06 Lorazepam (Lorazepam 0.5 Mg Tab) 0.5 mg PO Q8H PRN PRN Reason: Sedation/Anxiety Stop: 01/20/23 12:06 Magnesium Hydroxide (Magnesium Hydroxide Susp 30 Ml Udc) 30 ml PO Q24H PRN PRN Reason: Constipation Stop: 01/20/23 12:06 Metoclopramide HCl (Metoclopramide Hcl Inj 5 Mg/Ml 2 Ml Vial) 10 mg IV Q6H PRN PRN Reason: Nausea &/or Vomiting Stop: 01/20/23 12:06 Naloxone HCl (Naloxone Hcl 0.4 Mg/1 Ml Vial/Carp) 0.1 mg IV Q5M PRN PRN Reason: Oversedation/Resp depression Stop: 01/20/23 12:06 Ondansetron HCl (Ondansetron 4 Mg Od Tab) 4 mg PO Q6H PRN PRN Reason: Nausea Stop: 01/20/23 12:06 Ondansetron HCl (Ondansetron Inj 2 Mg/Ml 2 Ml Vial) 4 mg IV Q6H PRN PRN Reason: Nausea &/or Vomiting Stop: 01/20/23 12:06 Oxycodone HCl (Oxycodone Hcl Ir 5 Mg Tab (Immediate Release)) 5 - 10 mg PO Q4H PRN PRN Reason: Pain & Pre PT Stop: 01/04/23 12:06 Paroxetine HCl (Paroxetine Hcl 20 Mg Tab) 60 mg PO QAM JANET Stop: 01/21/23 08:59 Last Admin: 12/22/22 08:39 Dose: 60 mg Pneumococcal Polyvalent Vaccine (Do Not Administer Pneumococcal Vaccine) 1 each N/A PRN PRN PRN Reason: Notification Stop: 01/20/23 12:06 Polyethylene Glycol (Polyethylene (Miralax) 17 Gm Pack) 17 gm PO Q6 [facility] Stop: 01/21/23 05:59 Last Admin: 12/22/22 12:50 Dose: Not Given Senna/Docusate Sodium (Docusate Sodium/Senna 50/8.6mg Tab) 2 tab PO HS [facility] Stop: 01/20/23 20:59 Last Admin: 12/21/22 21:59 Dose: 2 tab Sodium Biphosphate/Sodium Phosphate (Sod Phosphate/Sod Biphosphate Enema 132 Ml Btl) 132 ml AR ONE PRN PRN Reason: Constipation Stop: 01/20/23 12:06 Tramadol HCl (Tramadol Hcl 50 Mg Tablet) 50 - 100 mg PO Q4H PRN PRN Reason: Moderate-Severe pain & Pre PT Stop: 01/20/23 12:06 Last Admin: 12/21/22 21:59 Dose: 50 mg Zolpidem Tartrate (Zolpidem Tartrate 10 Mg Tab) 10 mg PO [facility] Stop: 01/20/23 20:59 Last Admin: 12/21/22 21:58 Dose: 10 mg
[2022-12-22] MEDS: traMADol HCL 50 MG TABLET PO PRN (22:05)
[2022-12-22] MEDS: DOCUSATE SODIUM/SENNA 50/8.6MG TAB PO SCH (22:05)
[2022-12-22] MEDS: ZOLPIDEM TARTRATE 10 MG TAB PO SCH (22:07)
[2022-12-23 07:48] LABS: Basophils # (auto) 0.05 K/uL (0-0.2); Basophils % (auto) 0.5 %; Eosinophils # (auto) 0.36 K/uL (0-0.50); Eosinophils % (auto) 3.5 %; Hematocrit (blood only) 33.7 % (42.0-52.0); Hemoglobin 11.2 g/dl (14.0-18.0); Immature Granulocytes # (auto) 0.05 K/uL (0.01-0.20); Immature Granulocytes % (auto) 0.5 %; Lymphocytes # (auto) 2.49 K/uL (1.2-3.4); Lymphocytes % (auto) 24.2 %; Mean Corpuscular Hemoglobin 29.7 pg (25.0-34.0); Mean Corpuscular Hgb Conc 33.2 g/dL (32.0-36.0); Mean Corpuscular Volume 89.4 fL (80.0-100.0); Mean Platelet Volume 10.6 fL (9.4-12.4); Monocytes # (auto) 0.63 K/uL (0.11-0.59); Monocytes % (auto) 6.1 %; Neutrophils # (auto) 6.73 K/uL (1.40-6.50); Neutrophils % (auto) 65.2 %; Platelet Count 152 K/uL (130-400); RDW Coefficient of Variation 13.6 % (11.5-14.5); RDW Standard Deviation 44.4 fL (36.4-46.3); Red Blood Count 3.77 M/uL (4.70-6.10); White Blood Count 10.31 K/ul (4.8-10.8)
--- NOTE | 2022-12-23 07:54 | Discharge Summary ---
Date of Service December 23, 2022 Admission HPI Per Admitting Provider This is a 57-year-old male presents with chronic persistent back and leg pain after failing course of nonoperative care is here for surgical intervention. Discharge Data Consultations 12/21/22 12:07 Consult Hospitalist Routine Procedures Performed Operation Date: 12/21/22 07:45 Actual Procedures p L2-L3 Decompression and Fusion, Spinal Cord Monitoring, (Not Applicable) - Gonsalo Grossman DO s Hardware Removal L-3(Not Applicable) - Gonsalo Grossman DO Hospital Course (1) Neurogenic claudication due to lumbar spinal stenosis: Patient is a pleasant 57-year-old male with history physical examination radiographic images consistent with the above-mentioned diagnosis. This reason is brought to the operating room on 12/21/2022 and had undergone a removal of hardware and lumbar decompression and fusion at L2-3. This performed by Dr. Grossman under general anesthesia. Left the operating room with a ERNESTO drain Swift in place and transferred to PACU in stable condition. He was then transferred to the orthopedic floor. He is placed on GI DVT prophylaxis. He was seen by physical therapy postop day 1. Throughout his hospital course his pain has been under control with oral medications. His calves have remained supple nontender his abdomen soft and nontender. Today postop day #2 he has been deemed safe for home discharge. His discharge instructions were to change his dressing once daily until there is no drainage. Once there is no drainage he may shower. He should avoid lifting anything heavier than 5 to 7 pounds and should not perform any full bending at the waist. He is to see us in the office approximately 2 weeks or sooner if he develops any increased pain drainage from the incision or fevers or chills.
[2022-12-23] MEDS: ATORVASTATIN 40 MG TAB PO SCH (08:12)
[2022-12-23] MEDS: LISINOPRIL/HCTZ 10/12.5MG TAB PO SCH (08:12)
[2022-12-23] MEDS: GABAPENTIN 300 MG CAP PO SCH (08:12)
[2022-12-23 08:14] LABS: Chol HDL Ratio 2.9 (0-5)
[2022-12-23] MEDS: dexAMETHasone 6 MG in SYRINGE 0 ML IV SCH (08:14)
--- NOTE | 2022-12-23 08:34 | Hospitalist Progress Note ---
Date of Service December 23, 2022 Assessment & Plan (1) Neurogenic claudication due to lumbar spinal stenosis: (2) Disc displacement, lumbar: Plan: - Pain management, bowel regimen and DVT ppx per the primary team - PT/OT consults - Follow am CBC to monitor for acute blood loss (3) Hypertension: Plan: -Patient may continue lisinopril/HCTZ (4) Hyperlipidemia: Plan: -Continue atorvastatin 40 mg daily (5) Anxiety and depression: Plan: -Continue paroxetine 40 mg daily, Wellbutrin- pt is unsure of his dose and not available in ext med hx but knows this is once daily - Pt uses Ambien HS for sleep Blood loss anemia Hgb stable at 11.2 (11.4 yesterday), pre-op 16.3. Asymptomatic. DVT PPx: - teds, scds CODE: Full code Dispo: From home, likely to remain in the hospital x 1-2 days A total of 25 minutes were spent with greater than 50% of that time face to face with the patient, personally reviewing all current laboratories, imaging studies, past medication reconciliation, outpatient chart review, and discussion with specialists to collaborate care for the patient with attending. Please see attending documentation for corrections and/or additions. Admission and Anticipated Discharge Date Admission Date: December 21, 2022 Supervising Physician Co-Signing Physician Notes delayed entry date of service noted above Attending Addendum: care coordinated with DAKOTA Appiah please refer to her notes for full details, I agree with her notes Chart reviewed Agree with DAKOTA Appiah's assessment and plan Unfortunately when I visited patient's room at 1:40 PM, patient has already left. ASSESSMENT AND PLAN diagnoses and plan of care as per DAKOTA Appiah's notes Vijay Diaz MD Subjective Patient was seen and examined in room 324 in follow up for lumbar procedure. He is sitting up in bedside chair and overall doing well. Denies any acute changes overnight. Reviewed labwork - normal lipid panel and a1c. He denies fever, chills, sweats, lightheadedness, dizziness, chest pain, shortness breath, nausea, vomiting, abdominal pain. He is tolerating diet. He is passing urine without difficulty. Had a bowel movement. Review of Systems Review of Systems: At least ten systems reviewed and negative except as noted in the HPI. Physical Exam Physical Exam: Gen: WD/WN, NAD, sitting on side of bed, A&Ox3 HEENT: Normocephalic, atraumatic, conjunctivae moist, sclerae anicteric, mucous membranes moist Lung: Clear to Auscultation bilaterally, no wheezes/rales/rhonchi Heart: Regular rate, regular rhythm, no murmurs, rubs, or gallops Abdomen: Soft, NT, ND +BS x 4 Extremities: no edema Skin: Warm, no rash Results & Data Results & Data ([facility]) Vital Signs (Past 12 Hours) Vital Signs Temp Pulse Resp BP BP Pulse Ox O2 Del Method 12/23/22 07:13 36.7 C 58 L 16 152/94 H 100 Room Air 12/22/22 21:56 37.1 C 66 18 128/75 98 Room Air Laboratory Results Short CBC 12/23/22 Range/Units 07:26 WBC 10.31 (4.8-10.8) K/ul Hgb 11.2 L (14.0-18.0) g/dl Hct 33.7 L (42.0-52.0) % Plt Count 152 (130-400) K/uL Diagnostic Findings Lumbar Spine X-Ray 12/21/22 07:45 FL lumbar spine 2-3V CLINICAL HISTORY: L2-3 DFI TECHNIQUE: 3 views were obtained with the C-arm in the OR with the above procedure. Total fluoroscopy time was 14.3 seconds. Radiation dose was 12.73 mGy. Comparison: Comparison is made to lumbar spine fluoroscopy 07/07/2020 FINDINGS/IMPRESSION: Intraoperative images were obtained of L2-L3 decompression and fusion. Please correlate with intraoperative fluoroscopy and operative report. ACT 112: Negative or not required by law. Electronically signed by: Gokul Chaves M.D. 12/21/2022 10:16 AM
[2022-12-23] MEDS ORDERED: buPROPion SR 150 MG TABCR PO SCH (09:00)
[2022-12-23] MEDS ORDERED: PARoxetine HCL 20 MG TAB PO SCH (09:00)
[2022-12-23 09:14] LABS: Estimated Average Glucose 94 mg/dl; Hemoglobin A1C 4.9 % (4.5-5.6)
[2022-12-23] MEDS: ACETAMINOPHEN 500 MG TAB PO PRN (09:27)
[2022-12-23] MEDS ORDERED: ENOXAPARIN INJ 40 MG/0.4 ML SYR SQ SCH (12:30)
== END 2022-12-23 12:46 | disposition home or self-care (01) | DRG 454 ==
LOC: ASU 06:06 → 3E 10:05

== ENCOUNTER 2024-09-18 06:18 | Observation (INO) ==
--- NOTE | 2024-08-21 13:53 | PAT Medication Instructions ---
Medication Instructions Date of Service August 21, 2024 Home Medications atorvastatin 40 mg tablet 40 mg PO QAM celecoxib 200 mg capsule (Celebrex) 200 mg PO QAM lisinopril 10 mg-hydrochlorothiazide 12.5 mg tablet 1 tab PO QAM Medical Marijuana 1 dose PO UD PRN Pain gabapentin 300 mg capsule 300 mg PO TID paroxetine HCl 40 mg tablet 80 mg PO QAM bupropion HCl 150 mg tablet,12 hr sustained-release (Wellbutrin SR) 150 mg PO QAM multivitamin 1 tab PO QAM omega 2-hlz-qvr-fish oil 60 mg-90 mg-500 mg capsule (Fish Oil) 1 cap PO DAILY quetiapine 25 mg tablet 12.5 mg PO HS ASK your prescriber and surgeon celecoxib 200 mg capsule (Celebrex) 200 mg PO QAM STOP taking 2 weeks before surgery (or as soon as possible if surgery is within 2 weeks) omega 4-fgo-kdr-fish oil 60 mg-90 mg-500 mg capsule (Fish Oil) 1 cap PO DAILY DO NOT take the morning of surgery lisinopril 10 mg-hydrochlorothiazide 12.5 mg tablet 1 tab PO QAM multivitamin 1 tab PO QAM Take morning of surgery With a small sip of water, OTHERWISE NOTHING TO EAT OR DRINK AFTER MIDNIGHT: atorvastatin 40 mg tablet 40 mg PO QAM gabapentin 300 mg capsule 300 mg PO TID paroxetine HCl 40 mg tablet 80 mg PO QAM bupropion HCl 150 mg tablet,12 hr sustained-release (Wellbutrin SR) 150 mg PO QAM Take evening before surgery Medical Marijuana 1 dose PO UD PRN Pain (if needed) gabapentin 300 mg capsule 300 mg PO TID quetiapine 25 mg tablet 12.5 mg PO HS Other Notes If you have any questions please call us at [phone] or [phone] or [phone] or [phone]
--- NOTE | 2024-08-28 08:50 | Anesthesiology Consultation ---
Date of Service August 28, 2024 Assessment & Plan (1) Encounter for pre-operative examination: - Infectious disease screening: Per assessment on 08/28/24- No known recent infectious disease contacts or current infectious disease symptoms. - Hx glidescope intubation: * Lumbar fusion (07/07/20): Grade 1 view, glidescope #4, ETT 8 * L2-3 decompression/fusion (12/21/22): Grade 1 view, glidescope#4, ETT 8.0 - Patient acceptable risk for surgery pending surgeon-ordered PCP preop evaluation (Stephane Carter OPERATIONS SPECIALIST, appt 09/03). Chart Review Chart Review: Patient seen in Pre Admission Testing Teaching & Discussion Pre-Anesthesia Teaching/Discussion Notes: Instructed NPO after midnight before surgery,except medications with 15 cc of water. Medication instructions provided according to the PAT guidelines. History Surgery Operation Date: 09/18/24 07:45 Proposed Procedures p L1-L2 Decompression, Exploration L2-S1, Extension of Fusion T12-L2 - Gonsalo Grossman, Height/Weight Height: 5 ft 7 in Weight: 109.8 kg Allergies Allergy/AdvReac Type Severity Reaction Status Date / Time trazodone Allergy Severe Rapid Verified 08/21/24 10:58 heart rate capsaicin Allergy Intermediate Skin Verified 08/21/24 10:58 burning Medications Home Medications Medication Instructions Recorded Confirmed Last Taken atorvastatin 40 mg tablet 40 mg PO QAM 06/03/20 08/20/24 12/20/22 06:30 celecoxib 200 mg capsule (Celebrex) 200 mg PO QAM 06/03/20 08/20/24 12/20/22 06:30 lisinopril 10 1 tab PO QAM 06/03/20 08/20/24 12/20/22 06:30 mg-hydrochlorothiazide 12.5 mg tablet Medical Marijuana 1 dose PO UD PRN Pain 12/07/22 08/20/24 12/19/22 gabapentin 300 mg capsule 300 mg PO TID 12/07/22 08/20/24 12/21/22 04:30 paroxetine HCl 40 mg tablet 80 mg PO QAM 12/21/22 08/20/24 Unknown bupropion HCl 150 mg tablet,12 hr 150 mg PO QAM 12/22/22 08/20/24 Unknown sustained-release (Wellbutrin SR) multivitamin 1 tab PO QAM 08/20/24 08/20/24 Unknown omega 4-pbo-sym-fish oil 60 mg-90 1 cap PO DAILY 08/20/24 08/20/24 Unknown mg-500 mg capsule (Fish Oil) quetiapine 25 mg tablet 12.5 mg PO HS 08/20/24 08/20/24 Unknown Past Medical History Medical History Anxiety Depressive disorder Hearing deficit B/L SUAZO History of anemia Hyperlipidemia Hypertension IBS (irritable bowel syndrome) "Mild" No recent flares Obesity PTSD (post-traumatic stress disorder) Sleep apnea CPAP (compliant) Spinal stenosis Exercise / Class Metabolic Activity II 4-5 Yardwork/Stairs/Walk up hill Past Family History Family History Father Diabetes Other No family history of adverse response to anesthesia Past Surgical History Surgical History Difficult intubation Lumbar fusion (07/07/20): Grade 1 view, glidescope #4, ETT 8 L2-3 decompression/fusion (12/21/22): Grade 1 view, glidescope#4, ETT 8.0 H/O metal removed from eye H/O right wrist surgery Cyst excision History of carpal tunnel release of both wrists History of colonoscopy History of lumbar surgery Lumbar fusion (07/07/20) L2-3 decompression/fusion (12/21/22) History of tooth extraction History of total knee replacement R/L Hx of lymph node excision "Fatty deposit" removal from heel Past Anesthesia History Difficult Airway (Lumbar fusion (07/07/20): Grade 1 view, glidescope #4, ETT 8, L2-3 decompression/fusion (12/21/22): Grade 1 view, glidescope#4, ETT 8.0) and No Family Hx of Anesthesia Complications History of PONV No Hx of PONV and No Hx of Motion Sickness Social History Smoking Status: Former smoker tobacco type: cigarettes Do You Dip or Chew Tobacco: No Smoking End Date: Quit 15 years ago Hx Alcohol Use: Yes alcohol intake frequency: holidays/special occasions only Hx Substance Use: Yes substance use type: marijuana (medical marijuana occasional (Advised)) Review of Systems Patient denies chest pain, shortness of breath, dyspnea on exertion, fever, chills, cough, wheezing, palpitations. Physical Exam Vital Signs BP 116/76 P 59 TEMP 98.0 SP02 99%RA RESP 16 Physical Full cervical extension range of motion. Full TMJ range of motion. TMD 4 finger breaths Mallampati Score II Dentition: intact, + bridges (sides) Lungs: clear throughout to auscultation Cardiac: regular rate and rhythm, no murmurs noted Spine: normal Carotid arteries: negative bruit Extremities: no LE edema Lab Results Anesthesia Preop Results Results Anesthesia Widget: WBC 5.37 K/ul (4.8-10.8) 08/28/24 Hgb 14.5 g/dl (14.0-18.0) 08/28/24 Hct 44.0 % (42.0-52.0) 08/28/24 Plt 159 K/uL (130-400) 08/28/24 Na 138 mmol/L (136-145) 08/28/24 K 4.1 mmol/L (3.5-5.1) 08/28/24 Cl 104 mmol/L (98-107) 08/28/24 CO2 29 mmol/L (21-32) 08/28/24 BUN 23 mg/dl (6-23) 08/28/24 Creat 0.87 mg/dl (0.6-1.4) 08/28/24 Glucose Level 95 mg/dl (70-99(Fasting)) 08/28/24 PT 10.5 Seconds (9.0-12.0) 08/28/24 PTT 28 Seconds (21-31) 08/28/24 INR 1.0 (0.9-1.1) 08/28/24 Urine Color Yellow 08/28/24 Urine Appearance Clear (Clear) 08/28/24 Urine pH 5.5 (4.5-7.5) 08/28/24 Urine Specific [place] 1.018 (1.000-1.030) 08/28/24 Urine Protein Negative (Negative) 08/28/24 Urine Glucose (UA) Negative (Negative) 08/28/24 Urine Ketones Negative (Negative) 08/28/24 Urine Blood Negative (Negative) 08/28/24 Urine Nitrite Negative (Negative) 08/28/24 Urine Bilirubin Negative (Negative) 08/28/24 Urine Urobilinogen Negative (Negative) 08/28/24 Urine Leukocyte Esterase Negative (Negative) 08/28/24 Blood Type O Positive 08/28/24 Antibody Screen NEGATIVE 08/28/24 Testing Electrocardiogram Date: 08/28/24 NSR at 60bpm. LAD. Chest X-Ray Date: 08/28/24 FINDINGS: Lung volumes are normal. Lungs are clear. There is no pneumothorax or pleural effusion. Cardiac size is normal. Mediastinal contours are normal. There is no evidence for pulmonary edema. Lumbar spine fusion hardware is partially imaged. IMPRESSION: No acute cardiopulmonary findings. Echocardiogram Date: 02/18/22 EF 55% Mildly thickened aortic valve No significant valvular pathology Stress Test Date: 07/01/20 Exercise METS 7 MPHR 88% Negative for ischemia
[~2024-09-18 06:18] MED LIST changes: -ACETAMINOPHEN 500 MG TAB PO SCH; -CeleBREX 200 MG CAP PO SCH; -GABAPENTIN 600 MG DOSE PO SCH; -LACTATED RINGER'S 1,000 ML IV SCH; +LR 15ML/HR IV SCH; +LR 60ML/HR IV SCH; -ceFAZolin 2000MG 2,000 MG/15 ML SYR IV SCH
[2024-09-18] MEDS: ACETAMINOPHEN 500 MG TAB PO SCH (06:45)
[2024-09-18] MEDS: CeleBREX 200 MG CAP PO SCH (06:48)
[2024-09-18] MEDS: GABAPENTIN 600 MG DOSE PO SCH (06:48)
[2024-09-18] MEDS ORDERED: fentaNYL citrate PF 100 MCG/2 ML VIAL ONE (07:11)
[2024-09-18] MEDS ORDERED: ROCURONIUM BROMIDE 10 MG/ML 5 ML VIAL IV ONE ×2 (07:11→08:58)
[2024-09-18] MEDS ORDERED: DEXAMETHASONE SOD INJ 4 MG/ML VIAL ONE (07:11)
[2024-09-18] MEDS ORDERED: SUGAMMADEX SODIUM 200 MG/2 ML VIAL IV ONE (07:11)
[2024-09-18] MEDS ORDERED: LIDOCAINE 2% 20 MG/ML 5 ML SYR IV ONE (07:11)
[2024-09-18] MEDS ORDERED: PROPOFOL IV EMULSION 10 MG/ML 20 ML VIAL IV ONE (07:11)
[2024-09-18] MEDS ORDERED: ONDANSETRON INJ 2 MG/ML 2 ML VIAL ONE (07:11)
[2024-09-18] MEDS ORDERED: MIDAZOLAM HCL 1 MG/ML 2ML VIAL ONE (07:11)
[2024-09-18] MEDS ORDERED: HYDROmorphone INJ 2 MG/ML SYR/VIAL ONE (07:14)
[2024-09-18] MEDS ORDERED: DexMEDEtomidine HCL IV 100 MCG/ML VIAL IV ONE (07:15)
[2024-09-18] MEDS ORDERED: DROPERIDOL 5 MG/2 ML VIAL IV PRN (07:18)
[2024-09-18] MEDS ORDERED: ePHEDrine sulfate 50 MG/ML AMP IV PRN (07:18)
[2024-09-18] MEDS: SODIUM CHLORIDE 0.9% 1,000 ML IV SCH (07:18)
[2024-09-18] MEDS ORDERED: ATROPINE SULFATE 0.1 MG/ML 10ML SYR IV PRN (07:18)
[2024-09-18] MEDS ORDERED: ACETAMINOPHEN 1000 MG/100 ML IV IV ONE (07:23)
--- NOTE | 2024-09-18 07:35 | History & Physical Bridge Note ---
Date of Service September 18, 2024 History & Physical Bridge Note I have examined the patient, reviewed the History & Physical and in the interval since the performance of the History & Physical I have noted the following changes of clinical significance: no changes noted
--- NOTE | 2024-09-18 07:36 | History & Physical Report ---
Date of Service September 18, 2024 Assessment & Plan (1) Neurogenic claudication due to lumbar spinal stenosis: Plan: L1-L2 decompression fusion L2-S1 extension of fusion T12-L2 History of Present Illness Chief Complaint: Back and leg pain Primary Care Provider: Stephane Carter, BUSINESS INTEGRATION MANAGER-C This is a 59-year-old male who presents with chronic persistent back and leg pain and failing course of nonoperative care is here for surgical invention. Allergies Allergy/AdvReac Type Severity Reaction Status Date / Time trazodone Allergy Severe Rapid Verified 09/18/24 06:42 heart rate capsaicin Allergy Intermediate Skin Verified 09/18/24 06:42 burning Home Medications Medication Instructions Recorded Confirmed Type atorvastatin 40 mg tablet 40 mg PO QAM 06/03/20 09/18/24 History celecoxib 200 mg capsule (Celebrex) 200 mg PO QAM 06/03/20 09/18/24 History lisinopril 10 1 tab PO QAM 06/03/20 09/18/24 History mg-hydrochlorothiazide 12.5 mg tablet Medical Marijuana 1 dose PO UD PRN Pain 12/07/22 09/18/24 History gabapentin 300 mg capsule 300 mg PO TID 12/07/22 09/18/24 History paroxetine HCl 40 mg tablet 80 mg PO QAM 12/21/22 09/18/24 History bupropion HCl 150 mg tablet,12 hr 150 mg PO QAM 12/22/22 09/18/24 History sustained-release (Wellbutrin SR) multivitamin 1 tab PO QAM 08/20/24 09/18/24 History omega 9-dsf-hyy-fish oil 60 mg-90 1 cap PO DAILY 08/20/24 09/18/24 History mg-500 mg capsule (Fish Oil) quetiapine 25 mg tablet 12.5 mg PO HS 08/20/24 09/18/24 History Past Med/Surg History Problem List Neurogenic claudication due to lumbar spinal stenosis Encounter for pre-operative examination Disc displacement, lumbar (Chronic) Medical History Anxiety Depressive disorder Hearing deficit B/L SUAZO History of anemia Hyperlipidemia Hypertension IBS (irritable bowel syndrome) "Mild" No recent flares Obesity PTSD (post-traumatic stress disorder) Sleep apnea CPAP (compliant) Spinal stenosis Surgical History Difficult intubation Lumbar fusion (07/07/20): Grade 1 view, glidescope #4, ETT 8 L2-3 decompression/fusion (12/21/22): Grade 1 view, glidescope#4, ETT 8.0 H/O metal removed from eye H/O right wrist surgery Cyst excision History of carpal tunnel release of both wrists History of colonoscopy History of lumbar surgery Lumbar fusion (07/07/20) L2-3 decompression/fusion (12/21/22) History of tooth extraction History of total knee replacement R/L Hx of lymph node excision "Fatty deposit" removal from heel Family History Father Diabetes Other No family history of adverse response to anesthesia Social History Smoking Status: Former smoker Tobacco Type: Cigarettes Smoking End Date: Quit 15 years ago; Second Hand Exposure: No; Do You Dip or Chew Tobacco: No; Tobacco Cessation Education Requested by Patient: No Hx Alcohol Use: Yes Hx Substance Use: Yes Preferred Language: Vietnamese Communication Ability: Effective Apprentice Technician Required: No Beliefs That Will Affect Care: None marital status: Current Living Situation: Spouse Current Living Situation Comment: AND 2 CHILDREN Other Information That Helps Us Care for You: No Feels Safe at Home: Yes Safety Concerns: Feels Safe At This Time Assistive Devices: CPAP, Glasses and Hearing Aid - Bilateral Physical Exam Physical Exam: Patient is alert and oriented heart regular rhythm Lungs clear Results & Data Results & Data Vital Signs (Past 12 Hours) Vital Signs Temp Pulse Resp BP Pulse Ox O2 Del Method 09/18/24 06:36 37.2 C 80 20 126/84 99 Room Air
[2024-09-18] MEDS: ceFAZolin 2000MG 2,000 MG/15 ML SYR IV SCH ×2 (07:44→16:43)
[2024-09-18] MEDS ORDERED: SUCCINYLCHOLINE 100MG/5ML SYR IV ONE (07:51)
[2024-09-18] MEDS: ceFAZolin 330 MG/ML 1 GM VIAL ONE (08:43)
[2024-09-18] MEDS: BUPIVACAINE/EPINEPHRINE 0.25% 1:200,000 30 ML VIAL ONE (09:36)
[2024-09-18] MEDS: FLOSEAL HEMOSTATIC MATRIX 10ML TOP ONE (09:37)
--- NOTE | 2024-09-18 09:48 | Operative Report ---
Post Operative Report Pre & Post Diagnosis Operation Date: 09/18/24 07:45 Pre-Op Diagnosis: Neurogenic claudication due to lumbar spinal stenosis Lumbar radiculopathy Post-Op Diagnosis: Same I identified the patient and participated in the time-out.: Yes Procedure Operation Date: 09/18/24 07:45 Actual Procedures #1 lumbar decompression with bilateral medial facetectomies and foraminotomies T12-L1 L1-L2. #2 posterior spinal fusion T12-L2. #3 placed posterior instrumentation T12-L1 with connectors at the L2-L3 estuardo. #4 interbody fusion L1-L2. #5 placement of Spira 9 x 26 mm at L1-L2. #6 placement locally harvested morselized autograft in the posterior lateral gutters. #7 placement infuse collagen sponge combined with Koros in the posterior lateral gutters and os design in the interbody space. #8 application of versa wrap of the exposed dura. Surgeon Gonsalo Grossman, DO International Marketing Executive Claire Chapman Estimated Blood Loss 250 Findings See Below The patient is 5 foot 7 weighing over 110 kg with a BMI in excess of 38. Patient's body was did contribute to significant technical difficulty with positioning exposure and the procedure itself adding at least 50% increased operative time. Specimens None Indications This is a 59-year-old male who presents above-mentioned diagnosis of failed course of nonoperative care is here for surgical invention. Description of Procedure Patient was met with identified informed consent obtained. Patient was then taken to the operative suite underwent intubation placed in a prone position on the Russell table atop the Mikie frame. All bony promises well-padded eyes inspected to ensure no external pressure placed upon them. This point the thoracolumbar spine was prepped and draped in a sterile fashion. Sharp dissection with the assistance of Bovie cautery performed down to and exposing the lamina transverse processes of T12-L1 and the instrumentation at L2-L3 I then performed a complete laminectomy of L1 including bilateral male facetectomies and foraminotomies addressing severe spinal stenosis followed by partial laminectomy of T12 with bilateral medial facetectomies to address all subarticular disease. Pedicle screws then placed in T12-L1 bilaterally with assistance of fluoroscopy. Connectors were attached to the L2-L3 estuardo. By way of transforaminal approach on the left complete discectomy of L1-L2 was performed endplates guarded to subcortical bleeding bone and 9 x 26 mm Spira cage filled with os design bone graft tapped in position. Proper size rods were then contoured and locked into position bilaterally. The transverse processes of T12 L1-L2 burred to subcortical bleeding bone. Infuse collagen sponge combined with Koros and local harvested morselized autograft placement posterior gutters. Versa wrap placed over the exposed dura. 15 round ERNESTO drain inserted. Incision was then closed with 1 Vicryl fascia 2-0 Vicryl subcutaneously and 4 Monocryl for final skin closure. Steri-Strips sterile dressing placed. Patient waken taken to PACU in stable condition. Please note spinal cord monitoring visualized at the procedure no changes noted. Cliare Chapman was present at the entire procedure and brought the patient positioning complex portions of the surgery and fascial closure. Spinal cord monitoring was utilized at procedure no changes noted. Im ordering 20 grams of Triple Foreman Collagen Powder (Wochit [id number]) to treat an incision wound that was caused by a spine procedure. The incision is approximately 2 cm(W) x 4 cm(L) into the joint (D) in size and is a full thickness wound. Triple Foreman collagen comes in 1 gram packets so 20 packets were ordered. Given the size of the wound, with light to moderate exudate I chose to order a 20 day supply. The patient will be provided instructions for proper application of the collagen wound kit. The patient will be asked to apply the collagen powder daily and then cover it with sterile dressings dispensed. Collagen was selected as I expect the collagen to attract monocytes and fibroblasts, act as a sacrificial substrate for MMPs, and ultimately proved a matrix for tissue and vessel growth. The collagen will act as a primary dressing in this scenario. It is medically necessary for proper healing of these wounds to improve bioavailability and contact with each wound surface, this is also to help prevent infection of wounds and promote healing ultimately leading to a better healing outcome and limit the risk of infection.. I attest to the content of the Intraoperative Record and any orders documented therein. Any exceptions are noted below.
--- NOTE | 2024-09-18 10:02 | Fluoroscopy Report ---
FL lumbar spine 2-3V CLINICAL HISTORY: L1-L2 DECOMPRESSION EXPLORATION L2-S1 EXTENSION OF FUSION COMPARISON STUDY: 12/21/2022 FLUOROSCOPY TIME: 22.3 seconds FLUOROSCOPY IMAGES: 3 EXPOSURE DOSE: 14.58 mGy FINDINGS: Posterior interbody estuardo and screw fusion with discectomy. The visualized hardware appears i ntact. Exact numbering cannot be confirmed secondary to magnification of the images. Note that the im ages were submitted following completion of the surgery. IMPRESSION: Fluoroscopic assistance as above. ACT 112: Negative or not required by law. Electronically signed by: Kye Howell M.D. 09/18/2024 10:01 AM
[2024-09-18] MEDS: HYDROmorphone INJ 2 MG/ML SYR/VIAL IV PRN (10:51)
[2024-09-18] MEDS ORDERED: FAMOTIDINE 20 MG TAB PO PRN (11:15)
[2024-09-18] MEDS ORDERED: hydrOXYzine HCl 25 MG TAB PO PRN (11:15)
[2024-09-18] MEDS ORDERED: HYDROmorphone INJ 0.5 MG/0.5 ML SYR IV PRN (11:15)
[2024-09-18] MEDS ORDERED: NALOXONE HCL 0.4 MG/1 ML VIAL/CARP IV PRN (11:15)
[2024-09-18] MEDS ORDERED: LORazepam 0.5 MG TAB PO PRN (11:15)
[2024-09-18] MEDS ORDERED: ONDANSETRON INJ 2 MG/ML 2 ML VIAL IV PRN (11:15)
[2024-09-18] MEDS ORDERED: ACETAMINOPHEN 500 MG TAB PO PRN (11:15)
[2024-09-18] MEDS ORDERED: ALUMINUM/MAGNESIUM SUSP 30 ML UDC PO PRN (11:15)
[2024-09-18] MEDS ORDERED: MAGNESIUM HYDROXIDE SUSP 30 ML UDC PO PRN (11:15)
[2024-09-18] MEDS ORDERED: LORazepam 2 MG/1 ML VIAL IV PRN (11:15)
[2024-09-18] MEDS ORDERED: SOD PHOSPHATE/SOD BIPHOSPHATE ENEMA 132 ML BTL PR PRN (11:15)
[2024-09-18] MEDS ORDERED: METOCLOPRAMIDE HCL INJ 5 MG/ML 2 ML VIAL IV PRN (11:15)
[2024-09-18] MEDS ORDERED: ACETAMINOPHEN 1,000 MG/100 ML VIAL IV PRN (11:15)
[2024-09-18] MEDS ORDERED: DO NOT ADMINISTER PNEUMOCOCCAL VACCINE PRN (11:15)
[2024-09-18] MEDS ORDERED: bisacodyL 10 MG SUPP PR PRN (11:15)
[2024-09-18] MEDS ORDERED: ONDANSETRON 4 MG OD TAB PO PRN (11:15)
[2024-09-18] MEDS ORDERED: PROMETHAZINE 12.5 MG/50.5 ML BAG IV PRN (11:15)
[2024-09-18] MEDS ORDERED: DO NOT ADMINISTER FLU VACCINE PRN (11:15)
[2024-09-18] MEDS ORDERED: HYDROmorphone INJ 1 MG/ML SYRINGE IV PRN (11:15)
[2024-09-18] MEDS ORDERED: diphenhydrAMINE Capsule 25 MG CAP PO PRN (11:15)
[2024-09-18] MEDS: oxyCODONE HCL IR 5 MG TAB (IMMEDIATE RELEASE) PO PRN (12:08)
--- NOTE | 2024-09-18 12:19 | Consultation ---
Date of Consultation September 18, 2024 Assessment & Plan (1) Neurogenic claudication due to lumbar spinal stenosis: (2) Hypertension: (3) Sleep apnea: (4) PTSD (post-traumatic stress disorder): (5) IBS (irritable bowel syndrome): (6) Depressive disorder: (7) Anxiety: (8) Hyperlipidemia: Plan Patient 59-year-old gentleman status post spinal surgery performed with Dr. Grossman for lumbar stenosis with claudication. Continue postoperative care as dictated by Dr. Grossman Reviewed home medications, ordered as appropriate Order home CPAP Pain control and VTE prophylaxis as per attending Laboratory studies as ordered Thank you for this consultation History of Present Illness Requesting Physician: Gonsalo Grossman DO Reason for Consultation: Hypertension, postoperative medical management Attending Physician: Gonsalo Grossman DO History of Present Illness Patient is a 59-year-old gentleman with known degenerative lumbar spine disease with previous surgical interventions. Presented to [facility] on 09/18/2024 to undergo #1 lumbar decompression with bilateral medial facetectomies and foraminotomies T12-L1 L1-L2. #2 posterior spinal fusion T12- L2. #3 placed posterior instrumentation T12-L1 with connectors at the L2-L3 estuardo. #4 interbody fusion L1-L2. #5 placement of Spira 9 x 26 mm at L1-L2. #6 placement locally harvested morselized autograft in the posterior lateral gutters. #7 placement infuse collagen sponge combined with Koros in the posterior lateral gutters and os design in the interbody space. #8 application of versa wrap of the exposed dura as performed by Dr. Grossman. We are asked to consult on the patient postoperatively to manage his chronic medical issues. Time my evaluation patient is resting comfortably in his bed. His is at his bedside. He reports that his pain at right now is pretty well-controlled. He denies any recent fevers, chills or upper respiratory infection symptoms. No chest pain or shortness of breath. Bowels and bladder have been working adequately for him. No swelling in his hands arms legs or feet. Been eating well and states that his chronic medical issues have been well controlled and [facility] Allergies Allergy/AdvReac Type Severity Reaction Status Date / Time trazodone Allergy Severe Rapid Verified 09/18/24 06:42 heart rate capsaicin Allergy Intermediate Skin Verified 09/18/24 06:42 burning Home Medications Medication Instructions Recorded Confirmed Type atorvastatin 40 mg tablet 40 mg PO QAM 06/03/20 09/18/24 History celecoxib 200 mg capsule (Celebrex) 200 mg PO QAM 06/03/20 09/18/24 History lisinopril 10 1 tab PO QAM 06/03/20 09/18/24 History mg-hydrochlorothiazide 12.5 mg tablet Medical Marijuana 1 dose PO UD PRN Pain 12/07/22 09/18/24 History gabapentin 300 mg capsule 300 mg PO TID 12/07/22 09/18/24 History paroxetine HCl 40 mg tablet 80 mg PO QAM 12/21/22 09/18/24 History bupropion HCl 150 mg tablet,12 hr 150 mg PO QAM 12/22/22 09/18/24 History sustained-release (Wellbutrin SR) multivitamin 1 tab PO QAM 08/20/24 09/18/24 History omega 5-pjs-zgq-fish oil 60 mg-90 1 cap PO DAILY 08/20/24 09/18/24 History mg-500 mg capsule (Fish Oil) quetiapine 25 mg tablet 12.5 mg PO HS 08/20/24 09/18/24 History Patient History Medical History Anxiety Depressive disorder Hearing deficit B/L SUAZO History of anemia Hyperlipidemia Hypertension IBS (irritable bowel syndrome) "Mild" No recent flares Obesity PTSD (post-traumatic stress disorder) Sleep apnea CPAP (compliant) Spinal stenosis Surgical History Difficult intubation Lumbar fusion (07/07/20): Grade 1 view, glidescope #4, ETT 8 L2-3 decompression/fusion (12/21/22): Grade 1 view, glidescope#4, ETT 8.0 H/O metal removed from eye H/O right wrist surgery Cyst excision History of carpal tunnel release of both wrists History of colonoscopy History of lumbar surgery Lumbar fusion (07/07/20) L2-3 decompression/fusion (12/21/22) History of tooth extraction History of total knee replacement R/L Hx of lymph node excision "Fatty deposit" removal from heel Family History Father Diabetes Other No family history of adverse response to anesthesia Social History Smoking Status: Former smoker Tobacco Type: Cigarettes Smoking End Date: Quit 15 years ago; Second Hand Exposure: No; Do You Dip or Chew Tobacco: No; Tobacco Cessation Education Requested by Patient: No Hx Alcohol Use: Yes Hx Substance Use: Yes Preferred Language: Swazi Communication Ability: Effective Park Superintendent Required: No Beliefs That Will Affect Care: None marital status: Current Living Situation: Spouse Current Living Situation Comment: AND 2 CHILDREN Other Information That Helps Us Care for You: No Feels Safe at Home: Yes Safety Concerns: Feels Safe At This Time Assistive Devices: CPAP, Glasses and Hearing Aid - Bilateral Review of Systems Review of Systems: Pertinent positive and negative review of systems as mentioned in the HPI Physical Exam Physical Exam: Constitutional: Alert, no acute distress HEENT: Mucous membranes moist. Lungs: Clear to auscultation, decreased, no wheezes rales or rhonchi CV: S1-S2, regular Abdomen: Soft, nontender, nondistended Extremities: No significant edema Neuro: Moves all 4 extremities Musculoskeletal: ERNESTO drain from lumbar surgical incision Psych: Cooperative, normal mood Results & Data Vital Signs (Past 12 Hours) Vital Signs Temp Pulse Pulse Resp BP Pulse Ox O2 Del Method 09/18/24 11:49 72 16 120/75 95 Nasal Cannula 09/18/24 11:33 Nasal Cannula 09/18/24 11:16 36.8 C 86 16 120/73 95 Room Air 09/18/24 11:05 86 13 123/76 95 Nasal Cannula 09/18/24 10:55 88 13 123/78 95 Nasal Cannula 09/18/24 10:45 36.8 C 87 13 124/78 96 Nasal Cannula 09/18/24 10:35 98 H 16 112/68 95 Nasal Cannula 09/18/24 10:25 97 H 16 117/72 95 Oxymask 09/18/24 10:15 93 H 12 126/74 95 Oxymask 09/18/24 10:09 36.1 C L 87 12 133/90 96 Oxymask 09/18/24 06:36 37.2 C 80 20 126/84 99 Room Air O2 Flow Rate 12/03/24 11:49 2 09/18/24 11:33 2 09/18/24 11:16 09/18/24 11:05 2 09/18/24 10:55 2 09/18/24 10:45 2 09/18/24 10:35 2 09/18/24 10:25 9 09/18/24 10:15 9 09/18/24 10:09 9 09/18/24 06:36 Diagnostic Findings Reviewed imaging, laboratory and diagnostic studies. Pertinent findings as below. Reviewed outpatient preoperative laboratory studies from 08/28/2024. CBC within normal ranges Base metabolic profile within normal ranges Urinalysis unremarkable Personally reviewed preoperative EKG normal sinus rhythm no acute ST-T wave changes Reviewed outpatient preoperative clearance exam performed by his PCP
[2024-09-18] MEDS: GABAPENTIN 300 MG CAP PO SCH (14:16)
[2024-09-18] MEDS: traMADol HCL 50 MG TABLET PO PRN (20:51)
[2024-09-18] MEDS: DOCUSATE SODIUM/SENNA 50/8.6MG TAB PO SCH (20:51)
[2024-09-18] MEDS: QUEtiapine FUMARATE 25 MG TABLET PO SCH (20:53)
[2024-09-19] MEDS: POLYETHYLENE (MIRALAX) 17 GM PACK PO SCH (05:43)
--- NOTE | 2024-09-19 08:17 | Hospitalist Progress Note ---
Date of Service September 19, 2024 Assessment & Plan (1) Neurogenic claudication due to lumbar spinal stenosis: (2) Hypertension: (3) Sleep apnea: (4) PTSD (post-traumatic stress disorder): (5) IBS (irritable bowel syndrome): (6) Depressive disorder: (7) Anxiety: (8) Hyperlipidemia: Plan Patient 59-year-old gentleman status post spinal surgery performed with Dr. Grossman for lumbar stenosis with claudication. Continue postoperative care as dictated by Dr. Grossman Reviewed home medications, ordered as appropriate Hold lisinopril/ HCTZ for now, monitor BP Cont. home CPAP Pain control and VTE prophylaxis as per attending Laboratory studies ordered Thank you for this consultation Admission and Anticipated Discharge Date Admission Date: September 18, 2024 Subjective Pt seen in follow up of med consult, pt s/p spinal surgery Currently sitting up in chair in NAD, pt's is present at the bedside No fever, chills, chest pain or shortness of breath. No abd. pain, n/v Pain fairly well controlled. Pt says he has been ambulating. Catheter just removed, pt has not voided yet. No BM Review of Systems Review of Systems: All systems reviewed & are unremarkable except as noted in Subjective Physical Exam Physical Exam: Constitutional: Alert, no acute distress HEENT: Mucous membranes moist. Lungs: Clear to auscultation, decreased, no wheezes rales or rhonchi CV: S1-S2, regular Abdomen: Soft, nontender, nondistended Extremities: No significant edema Neuro: Moves all 4 extremities Musculoskeletal: ERNESTO drain from lumbar surgical incision Psych: Cooperative, normal mood Results & Data Results & Data Vital Signs (Past 12 Hours) Vital Signs Temp Pulse Resp BP Pulse Ox O2 Del Method 09/19/24 07:46 36.7 C 68 16 102/57 L 95 Room Air 09/19/24 04:00 36.8 C 70 18 129/79 94 Room Air 09/18/24 23:20 36.8 C 70 18 127/79 96 Room Air Laboratory Results 09/19/24 Range/Units 09:10 WBC 10.28 (4.8-10.8) K/ul RBC 4.62 L (4.70-6.10) M/uL Hgb 13.7 L (14.0-18.0) g/dl Hct 41.3 L (42.0-52.0) % MCV 89.4 (80.0-100.0) fL MCH 29.7 (25.0-34.0) pg MCHC 33.2 (32.0-36.0) g/dL RDW Std Deviation 45.9 (36.4-46.3) fL RDW Coeff of Rebecca 14.1 (11.5-14.5) % Plt Count 188 (130-400) K/uL MPV 10.7 (9.4-12.4) fL Immature Gran % (Auto) 0.2 % Neut % (Auto) 69.8 % Lymph % (Auto) 19.2 % Gem % (Auto) 9.2 % Eos % (Auto) 1.1 % Baso % (Auto) 0.5 % Neut # (Auto) 7.18 H (1.40-6.50) K/uL Lymph # (Auto) 1.97 (1.20-3.40) K/uL Gem # (Auto) 0.95 H (0.11-0.59) K/uL Eos # (Auto) 0.11 (0.00-0.50) K/uL Baso # (Auto) 0.05 (0.00-0.20) K/uL Immature Gran # (Auto) 0.02 (0.01-0.20) K/uL Sodium 138 (136-145) mmol/L Potassium 3.9 (3.5-5.1) mmol/L Chloride 102 (98-107) mmol/L Carbon Dioxide 30 (21-32) mmol/L Anion Gap 6 (3-11) BUN 14 (6-23) mg/dl Creatinine 0.89 (0.6-1.4) mg/dl Est Cr Clr Drug Dosing 108.6 ml/min eGFR 99.95 BUN/Creatinine Ratio 15.7 (10-20) Glucose 112 H (70-99(Fasting)) mg/dl Calcium 8.9 (8.6-10.3) mg/dl Phosphorus 2.7 (2.5-4.9) mg/dl Magnesium 2.2 (1.7-2.4) mg/dl Medications Administered Current Inpatient Medications Acetaminophen (Acetaminophen 500 Mg Tab) 1,000 mg PO Q8H PRN PRN Reason: MILD Pain Scale 1,2,3 & Pre PT Stop: 10/18/24 11:14 Al Hydrox/Mg Hydrox/Simethicone (Aluminum/Magnesium Susp 30 Ml Udc) 30 ml PO Q6H PRN PRN Reason: Dyspepsia Stop: 10/18/24 11:14 Atorvastatin Calcium ([facility]atin 40 Mg Tab) [facility] Stop: 10/19/24 08:59 Bisacodyl (Bisacodyl 10 Mg Supp) 10 mg [place] DAILY PRN PRN Reason: Constipation Stop: 10/18/24 11:14 Bupropion HCl (Bupropion Sr 150 Mg Tabcr) 150 mg PO [facility] Stop: 10/19/24 08:59 Diphenhydramine HCl (Diphenhydramine Capsule 25 Mg Cap) 25 mg PO Q6H PRN PRN Reason: Allergic Rhinitis/Insomnia Stop: 10/18/24 11:14 Famotidine (Famotidine 20 Mg Tab) 20 mg PO Q12H PRN PRN Reason: Dyspepsia Stop: 10/18/24 11:14 Gabapentin (Gabapentin 300 Mg Cap) 300 mg PO TID [facility] Stop: 10/18/24 13:59 Last Admin: 09/18/24 20:53 Dose: 300 mg Lisinopril/HCTZ (Lisinopril/Hctz 10/12.5mg Tab) 1 tab PO [facility] Stop: 10/19/24 08:59 Hydromorphone HCl (Hydromorphone Inj 0.5 Mg/0.5 Ml Syr) 0.5 mg IV Q3H PRN PRN Reason: MODERATE Pain (Scale 4,5,6) & Pre PT Stop: 10/02/24 11:14 Hydromorphone HCl (Hydromorphone Inj 1 Mg/Ml Syringe) 1 mg IV Q3H PRN PRN Reason: SEVERE Pain (Scale 7,8,9,10) Stop: 10/02/24 11:14 Hydroxyzine HCl (Hydroxyzine Hcl 25 Mg Tab) 25 mg PO Q8H PRN PRN Reason: Anxiety Stop: 10/18/24 11:14 Acetaminophen (Ofirmev) 1,000 mg in 100 mls @ 400 mls/hr IV Q8H PRN PRN Reason: Pain Rating 1-3 & Pre PT Stop: 09/19/24 11:15 Promethazine HCl (Phenergan) 12.5 mg in 50.5 mls @ 202 mls/hr IV Q6H PRN PRN Reason: Nausea And Vomiting Stop: 10/18/24 11:14 Dexamethasone 6 mg/ Syringe 1.5 mls @ 1 mls/min IV DAILY [facility] Stop: 09/21/24 09:02 Influenza Virus Vaccine Quadrival (Do Not Administer Flu Vaccine) 1 each N/A PRN PRN PRN Reason: Notification Stop: 10/18/24 11:14 Lorazepam (Lorazepam 0.5 Mg Tab) 0.5 mg PO Q8H PRN PRN Reason: Sedation/Anxiety Stop: 10/18/24 11:14 Lorazepam (Lorazepam 2 Mg/1 Ml Vial) 0.5 mg IV Q8H PRN PRN Reason: Sedation/Anxiety Stop: 10/18/24 11:14 Magnesium Hydroxide (Magnesium Hydroxide Susp 30 Ml Udc) 30 ml PO Q24H PRN PRN Reason: Constipation Stop: 10/18/24 11:14 Metoclopramide HCl (Metoclopramide Hcl Inj 5 Mg/Ml 2 Ml Vial) 10 mg IV Q6H PRN PRN Reason: Nausea &/or Vomiting Stop: 10/18/24 11:14 Multivitamins (Multivitamin Tab) 1 tab PO [facility] Stop: 10/19/24 08:59 Naloxone HCl (Naloxone Hcl 0.4 Mg/1 Ml Vial/Carp) 0.1 mg IV Q5M PRN PRN Reason: Oversedation/Resp depression Stop: 10/18/24 11:14 Ondansetron HCl (Ondansetron Inj 2 Mg/Ml 2 Ml Vial) 4 mg IV Q6H PRN PRN Reason: Nausea &/or Vomiting Stop: 10/18/24 11:14 Ondansetron HCl (Ondansetron 4 Mg Od Tab) 4 mg PO Q6H PRN PRN Reason: Nausea Stop: 10/18/24 11:14 Oxycodone HCl (Oxycodone Hcl Ir 5 Mg Tab (Immediate Release)) 5 - 10 mg PO Q4H PRN PRN Reason: Pain & Pre PT Stop: 10/02/24 11:14 Last Admin: 09/19/24 01:18 Dose: 5 mg Paroxetine HCl (Paroxetine Hcl 20 Mg Tab) [facility] [place] Stop: 10/19/24 08:59 Pneumococcal Polyvalent Vaccine (Do Not Administer Pneumococcal Vaccine) 1 each N/A PRN PRN PRN Reason: Notification Stop: 10/18/24 11:14 Polyethylene Glycol (Polyethylene (Miralax) 17 Gm Pack) 17 gm PO Q6 [facility] Stop: 10/19/24 05:59 Last Admin: 09/19/24 05:43 Dose: 17 gm Quetiapine Fumarate (Quetiapine Fumarate 25 Mg Tablet) 12.5 mg PO HS [facility] Stop: 10/18/24 20:59 Last Admin: 09/18/24 20:53 Dose: 12.5 mg Senna/Docusate Sodium (Docusate Sodium/Senna 50/8.6mg Tab) 2 tab PO HS [facility] Stop: 10/18/24 20:59 Last Admin: 09/18/24 20:51 Dose: 2 tab Sodium Biphosphate/Sodium Phosphate (Sod Phosphate/Sod Biphosphate Enema 132 Ml Btl) 132 ml IL ONE PRN PRN Reason: Constipation Stop: 10/18/24 11:14 Tramadol HCl (Tramadol Hcl 50 Mg Tablet) 50 - 100 mg PO Q4H PRN PRN Reason: Moderate-Severe pain & Pre PT Stop: 10/18/24 11:14 Last Admin: 09/18/24 20:51 Dose: 50 mg
--- NOTE | 2024-09-19 08:32 | Orthopedic Progress Note ---
Date of Service September 19, 2024 Assessment & Plan (1) Neurogenic claudication due to lumbar spinal stenosis: Plan: At this time continue physical therapy monitor his ERNESTO output hopefully discharge home next few days. Admission and Anticipated Discharge Date Admission Date: September 18, 2024 Subjective Patient's pain is controlled leg pain improved. He is up and ambulating last night. Physical Exam Physical Exam: Patient is currently bed appears comfortable. Distracted testing. Results & Data Vital Signs (Past 12 Hours) Vital Signs Temp Pulse Resp BP Pulse Ox O2 Del Method 09/19/24 07:46 36.7 C 68 16 102/57 L 95 Room Air 09/19/24 04:00 36.8 C 70 18 129/79 94 Room Air 09/18/24 23:20 36.8 C 70 18 127/79 96 Room Air Queries Orthopedic Spine Obesity: Yes
[2024-09-19] MEDS ORDERED: LISINOPRIL/HCTZ 10/12.5MG TAB PO SCH (09:00)
[2024-09-19] MEDS: PARoxetine HCL 20 MG TAB PO SCH (09:02)
[2024-09-19] MEDS: ATORVASTATIN 40 MG TAB PO SCH (09:03)
[2024-09-19] MEDS: buPROPion SR 150 MG TABCR PO SCH (09:03)
[2024-09-19] MEDS: MULTIVITAMIN TAB PO SCH (09:03)
[2024-09-19 09:31] LABS: Basophils # (auto) 0.05 K/uL (0.00-0.20); Basophils % (auto) 0.5 %; Eosinophils # (auto) 0.11 K/uL (0.00-0.50); Eosinophils % (auto) 1.1 %; Hematocrit (blood only) 41.3 % (42.0-52.0); Hemoglobin 13.7 g/dl (14.0-18.0); Immature Granulocytes # (auto) 0.02 K/uL (0.01-0.20); Immature Granulocytes % (auto) 0.2 %; Lymphocytes # (auto) 1.97 K/uL (1.20-3.40); Lymphocytes % (auto) 19.2 %; Mean Corpuscular Hemoglobin 29.7 pg (25.0-34.0); Mean Corpuscular Hgb Conc 33.2 g/dL (32.0-36.0); Mean Corpuscular Volume 89.4 fL (80.0-100.0); Mean Platelet Volume 10.7 fL (9.4-12.4); Monocytes # (auto) 0.95 K/uL (0.11-0.59); Monocytes % (auto) 9.2 %; Neutrophils # (auto) 7.18 K/uL (1.40-6.50); Neutrophils % (auto) 69.8 %; Platelet Count 188 K/uL (130-400); RDW Coefficient of Variation 14.1 % (11.5-14.5); RDW Standard Deviation 45.9 fL (36.4-46.3); Red Blood Count 4.62 M/uL (4.70-6.10); White Blood Count 10.28 K/ul (4.8-10.8)
[2024-09-19 09:47] LABS: BUN Creatinine Ratio 15.7 (10-20); Calcium 8.9 mg/dl (8.6-10.3); Creatinine Clr Calc Pharmacy 108.6 ml/min; Potassium 3.9 mmol/L (3.5-5.1)
[2024-09-19 09:55] LABS: Magnesium 2.2 mg/dl (1.7-2.4); Phosphorus 2.7 mg/dl (2.5-4.9)
[2024-09-19] MEDS: dexAMETHasone 6 MG in SYRINGE 0 ML IV SCH (10:38)
[2024-09-20 06:55] LABS: Hematocrit (blood only) 41.4 % (42.0-52.0); Hemoglobin 13.5 g/dl (14.0-18.0); Mean Corpuscular Hemoglobin 28.8 pg (25.0-34.0); Mean Corpuscular Hgb Conc 32.6 g/dL (32.0-36.0); Mean Corpuscular Volume 88.3 fL (80.0-100.0); Mean Platelet Volume 10.3 fL (9.4-12.4); Platelet Count 193 K/uL (130-400); RDW Coefficient of Variation 13.8 % (11.5-14.5); RDW Standard Deviation 44.8 fL (36.4-46.3); Red Blood Count 4.69 M/uL (4.70-6.10); White Blood Count 10.38 K/ul (4.8-10.8)
[2024-09-20 07:11] LABS: BUN Creatinine Ratio 17.4 (10-20); Creatinine Clr Calc Pharmacy 112.4 ml/min; Magnesium 2.3 mg/dl (1.7-2.4); Phosphorus 3.5 mg/dl (2.5-4.9)
--- NOTE | 2024-09-20 11:00 | Discharge Summary ---
Date of Service September 20, 2024 Admission HPI Per Admitting Provider This is a 59-year-old male who presents with chronic persistent back and leg pain and failing course of nonoperative care is here for surgical invention. Admission Exam (Per Admitting) Constitutional WD/WN, vitals as above Eyes normal visual agee by confrontation ENMT external ear and nose normal, oropharynx normal Neck normal visual inspection Respiratory normal respiratory effort Cardiovascular Extremities: normal capillary refill Gastrointestinal (Abdomen) Inspection/Auscultation: abdomen normal to inspection Musculoskeletal Spine: + pain with thoraco-lumbar ROM Extremities: extremities normal to inspection and strength 5/5 throughout Skin no rashes, warm and dry Neurologic normal touch/pain/proprioception and moves all extremities Psychiatric A+Ox3, euthymic affect Eye Contact: good eye contact Discharge Data Consultations 09/18/24 11:15 Consult Hospitalist Routine Procedures Performed Operation Date: 09/18/24 07:45 Actual Procedures p L1-L2 Decompression, Exploration L2-S1, Extension of Fusion T12-L2, Spinal Cord Monitoring(Not Applicable) - Gonsalo Grossman, Hospital Course (1) Neurogenic claudication due to lumbar spinal stenosis: Severo underwent T12-L2 decompression and fusion with marrying onto existing hardware. He had an uneventful hospital course. He has made great progress in physical therapy. Pain is controlled. Lab values have been stable. He has been discharged home on postoperative day 2 Discharge Instructions ACTIVITY RECOMMENDATIONS: SELF CARE INSTRUCTIONS AFTER THORACIC/LUMBAR FUSIONS 1. You may walk to your tolerance. It is good exercise for your legs and back. Expect some back and intermittent leg aches and pains. 2. You may perform "counter-top" level activities (make a sandwich, josé luis with a project, etc.). 3. No bending or lifting of more than 10 pounds or back twisting of any nature (roll like a log when turning in bed). 4. You may ride in a car for 20-30 minutes at a time. No driving until after your first visit with your doctor. 5. Frequent changes of position and restricting sitting to 30 minutes at a time will help limit the amount of back spasms and stiffness you may experience. 6. You may discontinue the use of ambulatory aids (cane, crutches, etc.) once your strength and confidence allow. 7. You may refrigeration insulator the shower and let water strike your incision when you arrive home at least once daily. Do not take a tub bath, sit in a hot tub or go into a swimming pool until after your first recheck in the office. 8. You may resume previous diet. SPECIAL CARE INSTRUCTIONS: VERY IMPORTANT TO READ AND REVIEW A. Your surgical incision has been closed with a cosmetic suture under the skin that will dissolve in about 6 weeks. In 14 days, you can use a pair of clean scissors and cut the suture that is left outside of the skin at the ends of your incision. 1. The small skin tapes can be removed 7 days after surgery if they have not fallen off by that point. 2. You may keep the wound open to air as much as possible to promote healing after post-op day number 5 unless told otherwise by your doctor. 3. If you think the wound looks like it is becoming infected (redness or worsening drainage) and/or you are experiencing fever, chill or worsening back pain and muscle spasms, contact the office so that we may evaluate you as soon as possible. B. Complications are uncommon, but please contact us if you have any signs or symptoms of: 1. wound infection (fever higher than 102.5 degrees F, redness, separation of wound, drainage, or increasing pain from the incision) 2. blood clots in legs (pain, swelling, redness and warmth in legs) 3. urinary tract infection (fever higher than 102.5 degrees F, burning upon urination or increased frequency of urination) 4. nerve problems (inability to walk on your toes or heels, numbness, loss of bowel or bladder control) 5. any other symptoms that concern you C. Please call the office at if you have any concerns or questions about your operation or recovery. D. No smoking! Smoking drastically decreases the chance of a solid fusion. E. Do not take any anti-inflammatory medications (Indocin, Advil, Motrin, Aspirin, Naprosyn, etc.) as these may inhibit the chance of a solid fusion. Tyl enol is okay to take for pain. MANAGING PAIN AFTER SPINAL SURGERY 1. Narcotic medication is intended for short-term use and will be provided for surgical pain. Surgical pain usually lasts for a period of 4-6 weeks. Narcotic medication includes Percocet, Vicodin, Darvocet, Tylenol #3 or Lortab. 2. Longer-term pain is more appropriately treated with non-narcotic medication such as Tylenol ES. 3. Muscle spasm is not appropriately treated with narcotics. Muscle relaxers such as Soma, Flexeril or Skelaxin can be used along with Tylenol ES. 4. Remember that we all live with some "aches and pains". This is not unusual or uncommon after an injury or as we get older. a. Back pain is expected and may include muscle spasms for 4 to 6 weeks after surgery. The pain should gradually improve. If the pain worsens for no apparent reason, please contact the office. b. Intermittent leg pain may also be experienced and should not be concerned about unless it worsens for no apparent reason. If so, please contact the office. 5. We will provide appropriate medication within the normal guidelines of their prescribed use. We will also be very cautious and aware of potential abuse and extended duration of patients' medication needs. a. Pain medications are for your comfort and to assist with sleep and rest so that the tissue can heal. They are not provided in order to return to normal activity and should not be used through the day. To do so or worsening pain at night can result from ongoing tissue damage and development of tolerance to the prescribed medicine. 6. Please allow 2-3 days to process refills. Prescriptions will not be mailed but must be picked up at the office. FOLLOW UP VISIT: Keep your scheduled follow-up appointment. Any questions, please call the office at .
[2024-09-20 11:05] VITALS: BP 147/83; PULSE 73; RESP 17; TEMP 98.1; O2SAT 96
--- NOTE | 2024-09-20 11:23 | Hospitalist Progress Note ---
Date of Service September 20, 2024 Assessment & Plan (1) Neurogenic claudication due to lumbar spinal stenosis: (2) Hypertension: (3) Sleep apnea: (4) PTSD (post-traumatic stress disorder): (5) IBS (irritable bowel syndrome): (6) Depressive disorder: (7) Anxiety: (8) Hyperlipidemia: Plan Patient 59-year-old gentleman status post spinal surgery performed with Dr. Grossman for lumbar stenosis with claudication. Continue postoperative care as dictated by Dr. Grossman Reviewed home medications, ordered as appropriate Held lisinopril/ HCTZ , can resume on DC Cont. home CPAP Pain control and VTE prophylaxis as per attending Laboratory studies reviewed, Hgb stable at 13.5, chemistries unremarkable Thank you for this consultation Admission and Anticipated Discharge Date Admission Date: September 18, 2024 Subjective Pt seen in follow up of med consult, pt s/p spinal surgery Currently sitting up in chair in NAD, pt stands up w/o any difficulty No fever, chills, chest pain or shortness of breath. No abd. pain, n/v Pain fairly well controlled. Pt says he has been ambulating. Plan for poss. DC today Review of Systems Review of Systems: All systems reviewed & are unremarkable except as noted in Subjective Physical Exam Physical Exam: Constitutional: Alert, no acute distress HEENT: Mucous membranes moist. Lungs: Clear to auscultation, decreased, no wheezes rales or rhonchi CV: S1-S2, regular Abdomen: Soft, nontender, nondistended Extremities: No significant edema Neuro: Moves all 4 extremities Musculoskeletal: ERNESTO drain from lumbar surgical incision Psych: Cooperative, normal mood Results & Data Results & Data Vital Signs (Past 12 Hours) Vital Signs Temp Pulse Resp BP BP Pulse Ox O2 Del Method 09/20/24 11:02 36.7 C 73 17 147/83 H 96 Room Air 09/20/24 08:14 36.5 C 58 L 18 142/88 H 98 Room Air 09/20/24 03:00 36.4 C L 74 18 117/84 95 Room Air, CPAP Laboratory Results 09/20/24 09/18/24 Range/Units 06:29 06:34 WBC 10.38 (4.8-10.8) K/ul RBC 4.69 L (4.70-6.10) M/uL Hgb 13.5 L (14.0-18.0) g/dl Hct 41.4 L (42.0-52.0) % MCV 88.3 (80.0-100.0) fL MCH 28.8 (25.0-34.0) pg MCHC 32.6 (32.0-36.0) g/dL RDW Std Deviation 44.8 (36.4-46.3) fL RDW Coeff of Rebecca 13.8 (11.5-14.5) % Plt Count 193 (130-400) K/uL MPV 10.3 (9.4-12.4) fL Sodium 137 (136-145) mmol/L Potassium 4.0 (3.5-5.1) mmol/L Chloride 101 (98-107) mmol/L Carbon Dioxide 29 (21-32) mmol/L Anion Gap 7 (3-11) BUN 15 (6-23) mg/dl Creatinine 0.86 (0.6-1.4) mg/dl Est Cr Clr Drug Dosing 112.4 ml/min eGFR 100.99 BUN/Creatinine Ratio 17.4 (10-20) Glucose 109 H (70-99(Fasting)) mg/dl Calcium 9.0 (8.6-10.3) mg/dl Phosphorus 3.5 (2.5-4.9) mg/dl Magnesium 2.3 (1.7-2.4) mg/dl Crossmatch See Detail Medications Administered Current Inpatient Medications Acetaminophen (Acetaminophen 500 Mg Tab) 1,000 mg PO Q8H PRN PRN Reason: MILD Pain Scale 1,2,3 & Pre PT Stop: 10/18/24 11:14 Al Hydrox/Mg Hydrox/Simethicone (Aluminum/Magnesium Susp 30 Ml Udc) 30 ml PO Q6H PRN PRN Reason: Dyspepsia Stop: 10/18/24 11:14 Atorvastatin Calcium (Atorvastatin 40 Mg Tab) 40 mg PO [facility] Stop: 10/19/24 08:59 Last Admin: 09/20/24 09:14 Dose: 40 mg Bisacodyl (Bisacodyl 10 Mg Supp) 10 mg SD DAILY PRN PRN Reason: Constipation Stop: 10/18/24 11:14 Bupropion HCl (Bupropion Sr 150 Mg Tabcr) 150 mg PO [facility] Stop: 10/19/24 08:59 Last Admin: 09/20/24 09:14 Dose: 150 mg Diphenhydramine HCl (Diphenhydramine Capsule 25 Mg Cap) 25 mg PO Q6H PRN PRN Reason: Allergic Rhinitis/Insomnia Stop: 10/18/24 11:14 Famotidine (Famotidine 20 Mg Tab) 20 mg PO Q12H PRN PRN Reason: Dyspepsia Stop: 10/18/24 11:14 Gabapentin (Gabapentin 300 Mg Cap) 300 mg PO TID [facility] [place] Stop: 10/18/24 13:59 Last Admin: 09/20/24 09:14 Dose: 300 mg Lisinopril/HCTZ (Lisinopril/Hctz 10/12.5mg Tab) 1 tab PO QAM [facility] [place] Stop: 10/19/24 08:59 Hydromorphone HCl (Hydromorphone Inj 0.5 Mg/0.5 Ml Syr) 0.5 mg IV Q3H PRN PRN Reason: MODERATE Pain (Scale 4,5,6) & Pre PT Stop: 10/02/24 11:14 Hydromorphone HCl (Hydromorphone Inj 1 Mg/Ml Syringe) 1 mg IV Q3H PRN PRN Reason: SEVERE Pain (Scale 7,8,9,10) Stop: 10/02/24 11:14 Hydroxyzine HCl (Hydroxyzine Hcl 25 Mg Tab) 25 mg PO Q8H PRN PRN Reason: Anxiety Stop: 10/18/24 11:14 Promethazine HCl (Phenergan) 12.5 mg in 50.5 mls @ 202 mls/hr IV Q6H PRN PRN Reason: Nausea And Vomiting Stop: 10/18/24 11:14 Dexamethasone 6 mg/ Syringe 1.5 mls @ 1 mls/min IV DAILY [facility] [place] Stop: 09/21/24 09:02 Last Admin: 09/20/24 10:41 Dose: 1 mls/min Influenza Virus Vaccine Quadrival (Do Not Administer Flu Vaccine) 1 each N/A PRN PRN PRN Reason: Notification Stop: 10/18/24 11:14 Lorazepam (Lorazepam 0.5 Mg Tab) 0.5 mg PO Q8H PRN PRN Reason: Sedation/Anxiety Stop: 10/18/24 11:14 Lorazepam (Lorazepam 2 Mg/1 Ml Vial) 0.5 mg IV Q8H PRN PRN Reason: Sedation/Anxiety Stop: 10/18/24 11:14 Magnesium Hydroxide (Magnesium Hydroxide Susp 30 Ml Udc) 30 ml PO Q24H PRN PRN Reason: Constipation Stop: 10/18/24 11:14 Metoclopramide HCl (Metoclopramide Hcl Inj 5 Mg/Ml 2 Ml Vial) 10 mg IV Q6H PRN PRN Reason: Nausea &/or Vomiting Stop: 10/18/24 11:14 Multivitamins (Multivitamin Tab) 1 tab PO QAM [facility] [place] Stop: 10/19/24 08:59 Last Admin: 09/20/24 09:14 Dose: 1 tab Naloxone HCl (Naloxone Hcl 0.4 Mg/1 Ml Vial/Carp) 0.1 mg IV Q5M PRN PRN Reason: Oversedation/Resp depression Stop: 10/18/24 11:14 Ondansetron HCl (Ondansetron Inj 2 Mg/Ml 2 Ml Vial) 4 mg IV Q6H PRN PRN Reason: Nausea &/or Vomiting Stop: 10/18/24 11:14 Ondansetron HCl (Ondansetron 4 Mg Od Tab) 4 mg PO Q6H PRN PRN Reason: Nausea Stop: 10/18/24 11:14 Oxycodone HCl (Oxycodone Hcl Ir 5 Mg Tab (Immediate Release)) 5 - 10 mg PO Q4H PRN PRN Reason: Pain & Pre PT Stop: 10/02/24 11:14 Last Admin: 09/19/24 20:13 Dose: 5 mg Paroxetine HCl (Paroxetine Hcl 20 Mg Tab) 80 mg PO QAM [facility] [place] Stop: 10/19/24 08:59 Last Admin: 09/20/24 09:16 Dose: 80 mg Pneumococcal Polyvalent Vaccine (Do Not Administer Pneumococcal Vaccine) 1 each N/A PRN PRN PRN Reason: Notification Stop: 10/18/24 11:14 Polyethylene Glycol (Polyethylene (Miralax) 17 Gm Pack) 17 gm PO Q6 [facility] [place] Stop: 10/19/24 05:59 Last Admin: 09/20/24 05:49 Dose: Not Given Quetiapine Fumarate (Quetiapine Fumarate 25 Mg Tablet) 12.5 mg PO HS [facility] [place] Stop: 10/18/24 20:59 Last Admin: 09/19/24 20:13 Dose: 12.5 mg Senna/Docusate Sodium (Docusate Sodium/Senna 50/8.6mg Tab) 2 tab PO HS [facility] Stop: 10/18/24 20:59 Last Admin: 09/19/24 20:13 Dose: Not Given Sodium Biphosphate/Sodium Phosphate (Sod Phosphate/Sod Biphosphate Enema 132 Ml Btl) 132 ml SD ONE PRN PRN Reason: Constipation Stop: 10/18/24 11:14 Tramadol HCl (Tramadol Hcl 50 Mg Tablet) 50 - 100 mg PO Q4H PRN PRN Reason: Moderate-Severe pain & Pre PT Stop: 10/18/24 11:14 Last Admin: 09/18/24 20:51 Dose: 50 mg
--- NOTE | 2024-09-24 11:55 | Coding Query ---
BMI To promote full compliance with coding requirements relating to patient care, physician participation is requested in all cases of inpatient coder uncertainty. Please assist us with the question(s) below: Please place an X within the parenthesis (x). If other, please document: BMI in excess of 38 was documented in this record for this patient. If the BMI is significant, please check the box that provides a more specific associated diagnosis: ( ) Overweight/Obese (x ) Obesity ( ) Morbid obesity ( ) Obesity Hypoventilation Syndrome (OHS) ( ) Heathy weight, not significant ( ) Underweight/Thin ( ) Other, please specify Thank you Brittany GARRETT
--- NOTE | 2024-09-28 10:29 | Anesthesiology Progress Note ---
Date of Service September 18, 2024 Anesthesia Post Procedure Pain Intensity Left Groin: Pain Intensity: 3 Back: Pain Intensity: 4 Transfer of Care Handoff Completed per policy Notes Mental Status: alert / awake / arousable and participated in evaluation Nausea / Vomiting: adequately controlled Pain: adequately controlled Airway Patency, RR, SpO2: stable & adequate BP & HR: stable & adequate Hydration State: stable & adequate Anesthetic Complications: no major complications apparent and Pt Satisfied with anesthetic care
== END 2024-09-20 14:26 | disposition home or self-care (01) | DRG 402 ==
LOC: ASU 06:18 → 3W 09:52 → INTOOBSV 09:52